=== PATIENT | female | born 1945 | race Caucasian/White ===

== ENCOUNTER → 2024-12-10 10:30 | Outpatient (REF) | payer MEDICARE, SELFPAY | LOC: RAD 10:30 | PROVIDERS: ATTENDING PHYSICIAN Family Medicine | DX: M81.0 Age-related osteoporosis without current pathological fracture (principal) | CPT/HCPCS: 77080 ==

== ENCOUNTER 2025-03-26 17:09 | Inpatient (IN) | payer MEDICARE, SELFPAY ==
[2025-03-26] VITALS (8 sets, daily range): BP systolic 112–190; BP diastolic 64–104; BMI 20.2
--- NOTE | 2025-03-26 11:25 | ED.GENMED ---
History of Present Illness
General
Chief Complaint: Back Pain
Source: patient and ambulance crew
Exam Limitations: none
Time Seen by Provider: 03/26/25 10:58
Nursing documentation reviewed up to this point in time: agreed with
History of Present Illness
History of Present Illness:
The patient is an 80-year-old female with a history of chronic back pain who presents with acute exacerbation characterized by pain in the back that radiates down to the left leg. The pain began yesterday after gardening and is associated with
numbness in the feet and difficulty ambulating. The patient cannot walk on the affected leg due to the severity of the pain. She reports taking acetaminophen and naproxen without significant relief. There is no mention of any prior MRI or specific
diagnostic workup for the back pain. On physical exam, the patients range of motion is limited by pain, specifically in the left leg, which is too painful to lift. The patient denies new bowel or urinary incontinence.
Past History
Past History
ED Past Medical History: HTN
ED Past Surgical History: Appendectomy and Gynecological
Social History
Tobacco: Non-smoker
Personal:
Living: with family
Family History
Family History: Negative Diabetes, Hypertension, Early CAD, Asthma or Cancer
Review of Systems
Review of Systems
Allergies reviewed?: Yes
All Other Systems: ROS reviewed and negative except as documented in HPI and ROS
Phy Exam
Physical Exam
Physical Exam:
GENERAL: Alert , in no apparent distress
EYE: pupils equal and reactive
NECK: Supple, no significant adenopathy.
ENT: o/p clr, mmm.
CARDIAC: Regular rate and rhythm .
LUNGS: Clear breath sounds bilaterally, no acute respiratory distress, no wheezes/rales/rhonchi
ABDOMEN: Soft, without focal tenderness, no r/g, no cvat
NEUROLOGICAL: Alert and oriented, no focal neuro deficits
SKIN: Warm and dry, skin intact.
MUSCULOSKELETAL: Good range of motion of the right leg good range of motion of both toes and ankles. Unwilling to move with straight leg raise the left side secondary to pain at the hip and back. No edema, well perfused.
PSYCH: Normal and appropriate interaction.
Course
Orders/Labs/Results
Orders:
Orders
03/26/25 11:23
Hip, Left 2-3 Views [CR Hip - LT w/wo Pel 2-3 Vw*] Urgent
Comment:
Reason For Exam: left hip pain
Include a pelvis x-ray?: Yes
Lumbar Spine, 2 or 3 View [CR Lumbar Spine 2 Or 3 Views] Urgent
Comment:
Reason For Exam: low back pain mainly left sided
03/26/25 11:24
Dexamethasone [Decadron] 10 mg PO NOW STA
Diazepam [Valium] 2 mg PO NOW STA
Ketorolac [Toradol] 15 mg IM NOW STA
03/26/25 12:09
Urinalysis Reflex To Culture Urgent
Date Specimen was Collected: 03/26/25
Time Specimen was Collected: 11:55
03/26/25 14:30
Acetaminophen [Tylenol] 650 mg PO NOW STA
Diazepam [Valium] 2 mg PO NOW STA
03/26/25 14:44
Pt Eval And Treat Urgent
Activity Level: Ambulate
03/26/25 15:04
Amlodipine [Norvasc] 5 mg PO ONCE ONE
Losartan [Cozaar] 50 mg PO NOW STA
03/26/25 15:38
BMP [Basic Metabolic Panel] Urgent
CBC/With Diff [Complete Blood Count/With Diff] Urgent
Abnormal Lab Results
03/26/25 03/26/25
12:09 15:38
MPV 10.9 H fL
(7.4-10.4)
Absolute Neuts (auto) 7.5 H 10^3/uL
(1.4-6.5)
Absolute Lymphs (auto) 0.8 L 10^3/uL
(1.2-3.4)
Neutrophils % 88.9 H %
(42.2-75.2)
Lymphocytes % 9.6 L %
(20.5-51.1)
Monocytes % 0.9 L %
(1.7-9.3)
Urine Ketones 2+ A
(Negative)
03/26/25 15:38
Vital Signs
Initial and Last Documented VS:
Initial Vital Signs
Temp Pulse Resp BP Pulse Ox
97.7 F 67 18 171/91 100
03/26/25 11:00 03/26/25 11:00 03/26/25 11:00 03/26/25 11:00 03/26/25 11:00
Last Documented Vital Signs
Temp Pulse Resp BP Pulse Ox
97.7 F 60 18 151/104 98
03/26/25 11:00 03/26/25 15:36 03/26/25 11:00 03/26/25 15:36 03/26/25 15:30
MDM/Problems Addressed
MDM/Problems Addressed:
80-year-old female presenting with back pain. No specific trauma that she is aware of. Pain mainly to the left low back rating to the left leg and hip. She claims to feel some paresthesias into her legs but has general sensation when palpating on
my exam. Normal skin tone normal distal pulses. Good neurologic function of the ankle feet toes. Unwilling to move the hip secondary to pain. Plan for imaging and medication for symptoms. No signs of cauda equina or spinal epidural abscess.
Patient was given Toradol dexamethasone with significant improvement of symptoms at time of reassessment. Initially patient was written up for discharge at this point she claims the pain is back and very severe unable to stand up. Seen by PT
unable to ambulate well plan to admit for further treatment and monitoring.
*Pulse Oximetry
SaO2: 100
Oxygen Mode of Delivery: Room air
*Critical Care Note
Total Time (30-74mins, 75-104mins- exclusive of procedures): Not Applicable
ED Attending Note
-
Portions of this chart may have been created with voice recognition software.� Occasional wrong word or��sound alike� substitutions may have occurred due to the inherent limitations of voice recognition software.
Discharge Plan
Departure
Patient Disposition: Admit
Date of Disposition: 03/26/25
Time of Disposition: 16:05
Admit to: Med/Surg
Admit to doctor: Htay
Presentation/result/management discussed w/ accepting MD/DO: Hospitalist
Patient with high blood pressure during this ER visit?: Yes
Condition: Good
Covid-19: Not Applicable
Discharge Problem:
Low back pain, Acute hip pain
Prescriptions:
No Action
ascorbic acid (vitamin C) 1,000 MG tablet
1,000 mg PO DAILY
calcium carbonate [Calcium 600] 600 MG tablet
600 mg PO DAILY
vitamin E 400 UNIT capsule
400 unit PO DAILY
multivitamin with folic acid [Tab-A-Javi] 1 TABLET tablet
1 tab PO DAILY
acetaminophen [Tylenol] 325 mg Tablet
650 mg PO Q6HPRN PRN (Reason: mild pain)
amlodipine [Norvasc] 5 mg Tablet
5 mg PO QPM
flaxseed oil 1,000 mg Capsule
1,000 mg PO DAILY
vitamin B complex Tablet
1 tab PO DAILY
cholecalciferol (vitamin D3) [Vitamin D3] 25 mcg (1,000 unit) Capsule
25 mcg PO DAILY
losartan 50 mg Tablet
50 mg PO QPM
aspirin 325 mg Tablet
325 mg PO DAILY Qty: 30 0RF
sucralfate 1 gram Tablet
1 g PO ACHS Qty: 90 0RF
docusate sodium 100 mg Capsule
100 mg PO BID Qty: 20 0RF
oxycodone 5 mg Tablet
5 mg PO Q4HPRN PRN (Reason: severe pain) Qty: 10 0RF
Chloraseptic Sore Throat 6-10 mg Lozenge
1 aidan PO Q4HPRN PRN (Reason: sore throat/dysphagia) Qty: 10 0RF
pantoprazole [Protonix] 40 mg tablet,delayed release (DR/EC)
40 mg PO DAILY Qty: 30 0RF
gabapentin 300 mg capsule
300 mg PO HS Qty: 7 0RF
Referrals:
David Dye Jr., DO [Family Provider, Internal Medicine]
Activity Restrictions/Additional Instructions:
You came to the emergency department today with concerns of back and hip discomfort. Please follow-up closely with your primary care doctor within the next week. Return for any worsening, new or concerning symptoms.
Interventions
Interventions:
*Risk Screen - Suicide Last Done: 03/26/25 11:00
*General Assessment Last Done: 03/26/25 11:00
*Neglect/Abuse Screening Last Done: 03/26/25 11:00
*ED- Fall Risk Assessment Last Done: 03/26/25 11:00
*ED COVID-19 Vaccine History Last Done: 03/26/25 11:00
ED-Musculoskeletal Assessment Last Done: 03/26/25 11:07
Discharge Date and Time
Print Language: BURKINAN
[2025-03-26] MEDS: TORADOL 15 MG IM (12:00)
[2025-03-26] MEDS: DECADRON 10 MG PO (12:00)
[2025-03-26] MEDS: VALIUM 2 MG PO ×2 (12:00→14:46)
[2025-03-26 12:35] LABS: Urine Albumin Negative (Neg - Trace); Urine Bilirubin Negative (Negative); Urine Character Clear (Clear); Urine Color Yellow; Urine Glucose Negative (Negative); Urine Ketone 2+ (Negative); Urine Leukocyte Negative (Negative); Urine Nitrite Negative (Negative); Urine Occult Blood Negative (Negative); Urine Specific Gravity 1.015 (<1.030); Urine Urobilinogen Negative (Neg - 1+)
[2025-03-26] MEDS: TYLENOL 650 MG PO (14:45)
[2025-03-26] MEDS: NORVASC 5 MG PO (15:35)
[2025-03-26] MEDS: COZAAR 50 MG PO (15:36)
[2025-03-26 15:52] LABS: % Basophils 0.1 % (0-2); % Immature Granulocytes 0.5 % (0-0.5); % Lymphocytes 9.6 % (20.5-51.1); % Monocytes 0.9 % (1.7-9.3); % Neutrophils 88.9 % (42.2-75.2); Absolute Lymphocytes 0.8 10^3/uL (1.2-3.4); Absolute Monocytes 0.1 10^3/uL (0.1-0.6); Absolute Neutrophils 7.5 10^3/uL (1.4-6.5); Hematocrit 40.4 % (37.0-47.0); Hemoglobin 14.1 g/dL (12.0-16.0); Mean Corp Hgb Conc. 34.9 g/dL (33.0-37.0); Mean Corpuscular Hgb 30.7 pg (27.0-31.0); Mean Platelet Volume 10.9 fL (7.4-10.4); Nucleated Red Blood Cells % 0 %; Platelet Count 251 10^3/uL (130-400); Red Blood Cell Count 4.59 10^6/uL (4.20-5.40); Red Cell Dist. Width 13.1 % (11.5-14.5); White Blood Cell Count 8.4 10^3/uL (4.8-10.8)
[2025-03-26 16:09] LABS: Blood Urea Nitrogen 16 mg/dl (7-17); Calcium 9.5 mg/dl (8.4-10.2); Carbon Dioxide 22 mmol/L (22-30); Chloride 106 mmol/L (98-107); Estimated Creatinine Clearance 61 ml/min; Glucose 139 mg/dl (70-99); Potassium 4.2 mmol/L (3.5-5.1); Sodium 137 mmol/L (135-145); eGFR > 60.00
--- NOTE | 2025-03-26 16:42 | HPS.HSE ---
Family Physician
-
Family Physician: David Dye Jr.
Chief Complaint
-
Lumbar and left hip pain
History of Present Illness
Ms. 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
presents now with worsening lumbar and left hip pain limiting her ability to ambulate. She reports pain in the left side of her lumbar region and left groin which travels down the front and back of her thigh to her heel. She reports that the pain
is extreme and associated with numbness and weakness. Today she also began experiencing urinary incontinence. Her symptoms began after gardening yesterday. She says she has been evaluated by an orthopedist for arthritis previously but not in many
years and was not ready for joint replacement at that time. She has been taking Tylenol and NSAIDs at home with very little relief.
In the ED she was hypertensive but otherwise hemodynamically stable. She had not taken her daily blood pressure medications prior to arrival today. Her labs were unremarkable. X-ray imaging showed mild to moderate degenerative changes of her left
hip and lumbar spine without evidence of acute fracture. She has been admitted for pain management and further evaluation.
Medical History
Past Medical History
Past Medical History: Reports HTN and Other
Additional Past Medical History:
Osteoporosis, degenerative disc disease
Past Surgical History: Reports Appendectomy, Bowel Resection (Partial omental resection due to infarction), Gynocological (Tubal ligation) and Orthopedic (Right hip ORIF)
Social History
Tobacco: Non-smoker
Alcohol: None
Family History
Family History: Not pertinent
Allergies / Home Medications
Allergies reflects when Allergies were last updated in [facility].
Home Medications with original date entered in [facility]
Allergy/Medication List:
Allergies
Allergy/AdvReac Type Severity Reaction Status Date / Time
No Known Allergies Allergy Verified 06/30/23 15:28
Home Medications
ascorbic acid (vitamin C) 1,000 mg tablet 1,000 mg PO DAILY Supplement 09/21/11
vitamin E 268 mg (400 unit) capsule 400 unit PO DAILY Supplement 09/21/11
amlodipine 5 mg tablet (Norvasc) 5 mg PO HS Blood Pressure 06/30/23
cholecalciferol (vitamin D3) 25 mcg (1,000 unit) capsule (Vitamin D3) 25 mcg PO DAILY Supplement 06/30/23
flaxseed oil 1,000 mg capsule 1,000 mg PO DAILY Supplement 06/30/23
losartan 50 mg tablet 50 mg PO HS Blood Pressure 06/30/23
vitamin B complex 1 tab PO DAILY Supplement 06/30/23
acetaminophen 500 mg tablet (Tylenol Extra Strength) 1,000 mg PO Q6H PRN mild pain 03/26/25
acetaminophen 650 mg tablet,extended release (Tylenol 8 Hour) 1,300 mg PO [id number] PRN mild pain 03/26/25
calcium 250 mg tablet 500 mg PO BID 03/26/25
gabapentin 300 mg capsule 300 mg PO DAILYPRN PRN mild pain 03/26/25
ibuprofen 200 mg tablet 200 mg PO DAILYPRN PRN mild pain 03/26/25
therapeutic multivitamin 1 tab PO DAILY 03/26/25
Review of Systems
-
History Source: Patient
A 12 point ROS was completed and negative except as noted: Yes
Musculoskeletal: Reports Joint Pain (Severe left lower back pain and left hip/groin pain)
Neurological: Reports Other (Left lower extremity weakness and numbness, urinary incontinence)
Physical Exam
Vital Signs
Vital Signs
Temp Pulse Resp BP Pulse Ox
97.7 F 60 18 178/79 98
03/26/25 11:00 03/26/25 15:36 03/26/25 11:00 03/26/25 16:01 03/26/25 16:15
Physical Exam
General: Pain
Laboratory Results
-
03/26/25 15:38
03/26/25 15:38
Impression/Plan
-
General: No acute distress, in significant pain with minimal movement
HEENT: NormoCephalic, Moist mucous membranes, Atraumatic
Respiratory: Clear and Non Labored Respirations
Cardiac: S1/S2 and Regular Rhythm; No Rub or Gallop
GI: Soft, Non Tender, Non Distended and Normal Bowel Sounds
Musculoskeletal: No Edema, no deformity, significant TTP left paraspinal in the region of L5-S1, left hip ROM limited by pain
Skin: Warm and dry
: NO Hdez
Neuro: Awake, Alert, Nonfocal/grossly intact
Psych: Calm and Intact Judgment/Insight
Ms. 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
presents now with worsening lumbar and left hip pain limiting her ability to ambulate. She reports pain in the left side of her lumbar region and left groin which travels down the front and back of her thigh to her heel. She reports that the pain
is extreme and associated with numbness and weakness. Today she also began experiencing urinary incontinence. Her symptoms began after gardening yesterday. She says she has been evaluated by an orthopedist for arthritis previously but not in many
years and was not ready for joint replacement at that time. She has been taking Tylenol and NSAIDs at home with very little relief.
In the ED she was hypertensive but otherwise hemodynamically stable. She had not taken her daily blood pressure medications prior to arrival today. Her labs were unremarkable. X-ray imaging showed mild to moderate degenerative changes of her left
hip and lumbar spine without evidence of acute fracture. She has been admitted for pain management and further evaluation.
Left hip and back pain:
- Acute on chronic, worse after working in her garden 1 day prior to arrival
- No acute fracture on x-ray, does have mild to moderate degenerative disease of left hip and lumbar spine
- Will follow-up MRI of lumbar spine and left hip, will involve neurosurgery if indicated by imaging results
- Ortho consult
- Multimodal pain control
- PT/OT
Hypertension:
- Continue home amlodipine 5 mg and losartan 50 mg
DVT prophylaxis: Lovenox
CODE STATUS: DNR/DNI
Total time spent on today's encounter was 55 minutes.
--- NOTE | 2025-03-26 17:05 | PHANOTE ---
03/26/2025, per pt., she takes Evenity for her bones; was not able to confirm dose with the [facility] at time of interview.
[2025-03-26] MEDS: LIDOCAINE 4% PATCH 1 PATCH TOPICAL (18:29)
[2025-03-26] MEDS: LOVENOX 40 MG SC (18:29)
[2025-03-26] MEDS: DILAUDID 0.5 MG IV ×2 (18:30→22:46)
[2025-03-26] MEDS: TYLENOL 1000 MG PO (21:11)
[2025-03-26] MEDS: NEURONTIN 200 MG PO (21:13)
[2025-03-27] MEDS: ROXICODONE 5 MG PO ×4 (00:37→22:07)
[2025-03-27 07:35] LABS: % Basophils 0.1 % (0-2); % Eosinophils 0.1 % (0-6); % Immature Granulocytes 0.3 % (0-0.5); % Lymphocytes 18.6 % (20.5-51.1); % Monocytes 4.7 % (1.7-9.3); % Neutrophils 76.2 % (42.2-75.2); Absolute Lymphocytes 1.7 10^3/uL (1.2-3.4); Absolute Monocytes 0.4 10^3/uL (0.1-0.6); Hematocrit 37.2 % (37.0-47.0); Hemoglobin 13.3 g/dL (12.0-16.0); Mean Corp Hgb Conc. 35.8 g/dL (33.0-37.0); Mean Corpuscular Hgb 31.2 pg (27.0-31.0); Mean Corpuscular Volume 87.3 fL (81.0-99.0); Mean Platelet Volume 11.1 fL (7.4-10.4); Nucleated Red Blood Cells % 0 %; Platelet Count 288 10^3/uL (130-400); Red Blood Cell Count 4.26 10^6/uL (4.20-5.40); Red Cell Dist. Width 12.9 % (11.5-14.5); White Blood Cell Count 9.2 10^3/uL (4.8-10.8)
[2025-03-27 07:42] LABS: INR 0.99; PT 13.4 Sec (11.4-14.6)
[2025-03-27 07:49] LABS: APTT 32.8 Sec (23.4-35.0)
[2025-03-27 07:50] VITALS: BP 136/75
[2025-03-27 08:19] LABS: Blood Urea Nitrogen 28 mg/dl (7-17); Calcium 8.6 mg/dl (8.4-10.2); Carbon Dioxide 17 mmol/L (22-30); Chloride 105 mmol/L (98-107); Estimated Creatinine Clearance 57 ml/min; Glucose 133 mg/dl (70-99); Potassium 4.3 mmol/L (3.5-5.1); Sodium 134 mmol/L (135-145); eGFR > 60.00
--- NOTE | 2025-03-27 08:21 | W.PN.UPDATE ---
Update Note
Progress Note Update
Full consult to follow
80-year-old female with atraumatic onset of low back and left-sided pain disabling and unable to bear weight. Denies any traumatic history. History of right hip cephalomedullary nail fixation which has been uncomplicated. She does report a
history of intermittent back pain episodes but not to the severity. Endorsing pain to the posterior lateral hip, low back, somewhat into the groin into the dorsum of her foot worse with weightbearing. Denies paresthesias
On examination she is no pain of the hip deep inguinal with FADIR or CHANDNI testing. She has deep flexion of the hip towards 120 degrees without pain and no pain with logroll. No significant neuro weakness on exam L3-S1, exam limited secondary to
pain however no significant weakness identified L5-S1.
X-rays taken of the left hip show minimal arthrosis of the left femoral acetabular joint without acute osseous abnormalities.
80-year-old female with atraumatic onset of lumbar pain and suspected radiculopathy to the left lower extremity pending MRI of her lumbar spine and left hip. Discussed with patient do not suspect the etiology is relative the hip but will maintain
engagement pending MRI results. If there are no significant findings regarding the hip will encourage follow-up with primary team/spine consult as indicated.
[2025-03-27] MEDS: LIDOCAINE 4% PATCH 1 PATCH TOPICAL (08:51)
[2025-03-27] MEDS: NEURONTIN 200 MG PO ×3 (08:51→22:08)
[2025-03-27] MEDS: TYLENOL 1000 MG PO ×3 (08:51→22:08)
--- NOTE | 2025-03-27 10:15 | CM ---
Patient seen bedside, initial assessment completed. 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
after fall) status post ORIF 07/01/2023) who presents now with worsening lumbar and left hip pain limiting her ability to ambulate.
Patient resides w/ her spouse in a 1st floor independent living apartment at [facility], no steps to enter. Patient reports she was prev independent w/o device but is now requiring a RW. Independent w/ ADLs, tub grab bar in the bathroom.
Patient received skilled rehab at [facility] last year following hip fx. OP and home PT last year as well following hip fx.
Address, point of contact and insurance verified
PCP: David Dye
Pharmacy: [facility]
Therapy assessed yesterday, recommending skilled rehab. Discussed w/ patient who stated she would like to discuss at a later time as she has had back pain for a while and would like to know pending further imaging if she suffered a new injury. CM
will revisit SNF as patient progresses and PT continues to see.
Plan: SNF recommended at this time
[2025-03-27] MEDS: DILAUDID 0.5 MG IV (10:49)
--- NOTE | 2025-03-27 14:21 | W.PN.HOSP.TC ---
Today's Communication/Plan
-
Assessment / Plan
Assessment / Plan
General: No acute distress, in significant pain with minimal movement
HEENT: NormoCephalic, Moist mucous membranes, Atraumatic
Respiratory: Clear and Non Labored Respirations
Cardiac: S1/S2 and Regular Rhythm; No Rub or Gallop
GI: Soft, Non Tender, Non Distended and Normal Bowel Sounds
Musculoskeletal: No Edema, no deformity, significant TTP left paraspinal in the region of L5-S1, left hip ROM limited by pain
Skin: Warm and dry
: NO Hdez
Neuro: Awake, Alert, Nonfocal/grossly intact
Psych: Calm and Intact Judgment/Insight
Ms. 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
presents now with worsening lumbar and left hip pain limiting her ability to ambulate. She reports pain in the left side of her lumbar region and left groin which travels down the front and back of her thigh to her heel. She reports that the pain
is extreme and associated with numbness and weakness. Today she also began experiencing urinary incontinence. Her symptoms began after gardening yesterday. She says she has been evaluated by an orthopedist for arthritis previously but not in many
years and was not ready for joint replacement at that time. She has been taking Tylenol and NSAIDs at home with very little relief.
In the ED she was hypertensive but otherwise hemodynamically stable. She had not taken her daily blood pressure medications prior to arrival today. Her labs were unremarkable. X-ray imaging showed mild to moderate degenerative changes of her left
hip and lumbar spine without evidence of acute fracture. She has been admitted for pain management and further evaluation.
Left hip and back pain:
- Acute on chronic, worse after working in her garden 1 day prior to arrival
- No acute fracture on x-ray, does have mild to moderate degenerative disease of left hip and lumbar spine
- MRI of lumbar spine and left hip showed no evidence of fracture or avascular necrosis, mild to moderate degenerative changes of the left hip with a likely tear of the anterior superior labrum, lumbar spinal stenosis appears severe but unchanged
from previous
- Ortho following, will follow-up regarding MRI results
- Multimodal pain control
- PT/OT
Hypertension:
- Continue home amlodipine 5 mg and losartan 50 mg
DVT prophylaxis: Lovenox
CODE STATUS: DNR/DNI
Total time spent on today's encounter was 39 minutes.
Anticipated Discharge: 24 - 48 hours
Subjective/Interval History
-
Date of Service: March 27, 2025
Patient was seen and examined at bedside this morning. Ongoing left hip and back pain. MRI results pending
Objective Data
-
Labs:
Laboratory Results
03/27/25
07:15
WBC 9.2
Hgb 13.3
Hct 37.2
Plt Count 288
PT 13.4
INR 0.99
APTT 32.8
Sodium 134 L
Potassium 4.3
Chloride 105
Carbon Dioxide 17 L
BUN 28 H
Creatinine 0.6
Glucose 133 H
Calcium 8.6
Vital Signs:
Vital Signs
Temp Pulse Resp BP Pulse Ox
97.9 F 67 16 136/75 97
03/27/25 07:50 03/27/25 07:50 03/27/25 07:50 03/27/25 07:50 03/27/25 07:50
I&O
03/26/25 03/27/25 03/28/25
06:59 06:59 06:59
Intake Total 360 / 360
Output Total 100 / 100
Balance 260 / 260
Review of Systems
-
History Source: Patient
All other systems: Reviewed and negative
Musculoskeletal: Reports Joint Pain (Left hip and back pain)
Physical Exam
-
General: No Apparent Distress
[2025-03-27 16:27] VITALS: BP 153/73
--- NOTE | 2025-03-27 16:44 | PTCARENOTE ---
Pt fell today, roommate witnessed fall. made aware, report filed.
[2025-03-27] MEDS: LOVENOX 40 MG SC (17:02)
--- NOTE | 2025-03-27 21:30 | CON.ORTHO ---
Consultation
-
Date/Time Consultation Requested: 03/26/2025 16: 35
Date/Time Consultation Performed: 03/27/2025 0745
Requesting Provider: Dr. Ricky Greenfield
Performing Provider: ANNIE Carrera, Dr. Karan Martines
Reason for Consultation: Left hip pain
Consultation - Orthopedics
History
80-year-old female with atraumatic onset of low back and left-sided pain disabling and unable to bear weight. Denies any traumatic history. History of right hip cephalomedullary nail fixation which has been uncomplicated. She does report a
history of intermittent back pain episodes but not to the severity. Endorsing pain to the posterior lateral hip, low back, somewhat into the groin into the dorsum of her foot worse with weightbearing. Denies paresthesias
Allergies / Home Medications
Past Medical History: Reports HTN and Other
Additional Past Medical History:
Osteoporosis, degenerative disc disease
Past Surgical History: Reports Appendectomy, Bowel Resection (Partial omental resection due to infarction), Gynocological (Tubal ligation) and Orthopedic (Right hip ORIF)
Social History
Tobacco: Non-smoker
Alcohol: None
Family History
Family History: Not pertinent
Allergies / Home Medications
Allergies reflects when Allergies were last updated in [facility].
Allergy/AdvReac Type Severity Reaction Status Date / Time
No Known Allergies Allergy Verified 06/30/23 15:28
�Medication �Instructions �Recorded
ascorbic acid (vitamin C) 1,000 mg 1,000 mg PO DAILY Supplement 09/21/11
tablet
vitamin E 268 mg (400 unit) capsule 400 unit PO DAILY Supplement 09/21/11
amlodipine 5 mg tablet (Norvasc) 5 mg PO HS Blood Pressure 06/30/23
cholecalciferol (vitamin D3) 25 25 mcg PO DAILY Supplement 06/30/23
mcg (1,000 unit) capsule (Vitamin
D3)
flaxseed oil 1,000 mg capsule 1,000 mg PO DAILY Supplement 06/30/23
losartan 50 mg tablet 50 mg PO HS Blood Pressure 06/30/23
vitamin B complex 1 tab PO DAILY Supplement 06/30/23
Evenity 1 dose SC QMONTH 03/26/25
acetaminophen 500 mg tablet 1,000 mg PO Q6H PRN mild pain 03/26/25
(Tylenol Extra Strength)
acetaminophen 650 mg 1,300 mg PO [id number] PRN mild pain 03/26/25
tablet,extended release (Tylenol 8
Hour)
calcium 250 mg tablet 500 mg PO BID Supplement 03/26/25
gabapentin 300 mg capsule 300 mg PO DAILYPRN PRN mild pain 03/26/25
ibuprofen 200 mg tablet 200 mg PO DAILYPRN PRN mild pain 03/26/25
therapeutic multivitamin 1 tab PO DAILY Supplement 03/26/25
Vital Signs / Lab Results
Temp Pulse Resp BP Pulse Ox
97.7 F 69 18 153/73 100
03/27/25 16:27 03/27/25 16:27 03/27/25 16:27 03/27/25 16:27 03/27/25 16:27
PHYSICAL EXAM:
On examination she is no pain of the hip deep inguinal with FADIR or CHANDNI testing. She has deep flexion of the hip towards 120 degrees without pain and no pain with logroll. No significant neuro weakness on exam L3-S1, exam limited secondary to
pain however no significant weakness identified L5-S1.
IMAGING: X-rays taken of the left hip show minimal arthrosis of the left femoral acetabular joint without acute osseous abnormalities.
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
03/27/25 07:15
03/27/25 07:15
Assessment / Plan
80-year-old female with atraumatic onset of lumbar pain and suspected radiculopathy to the left lower extremity; her hip physical exam was benign and MRI does not show significantly correlating findings. Her exam and history is more consistent with
acute exacerbation of chronic lumbar pathology.
-recommend spine consultation as needed for assistance in management
-no orthopedic surgery services indicated at this time- will follow peripherally- please rengage as needed
[2025-03-27 23:46] VITALS: BP 133/69
[2025-03-28] MEDS: DILAUDID 0.5 MG IV ×2 (05:42→19:32)
[2025-03-28] MEDS: NEURONTIN 200 MG PO (07:48)
[2025-03-28] MEDS: TYLENOL 1000 MG PO ×3 (07:49→21:32)
[2025-03-28] MEDS: ROXICODONE 5 MG PO ×2 (07:49→13:01)
[2025-03-28] MEDS: LIDOCAINE 4% PATCH 1 PATCH TOPICAL (07:51)
[2025-03-28 07:59] VITALS: BP 153/77
[2025-03-28] MEDS: FLEXERIL 5 MG PO ×3 (10:15→21:32)
--- NOTE | 2025-03-28 12:31 | CON.NEURO ---
Consultation
Order
Date of Consultation: 03/28/25
Requesting Provider: Ricky Greenfield DO
Reason for Consult: Left lower extremity radiculopathy, need help with pain control.
Neurology Consultation Note.
HPI: This is an 80-year-old woman who presented to [facility] on 03/26/2025 with an acute left leg pain.
Ms. Christopher reports developing an acute severe positional left leg pain from the hip down upon awakening. This pain is severe enough that she was 'doubled over' and unable to walk or 'think clearly'.
The patient has a history of LS DJD and right-sided radiculopathy poorly responsive to RIVAS in the past.
In addition to the leg pain, the patient reports new-onset incontinence starting the day before presentation, which is ongoing and exacerbated by changing position. She also describes experiencing tingling and numbness in her feet, which began on
. The patient mentions having neuropathy, with numbness typically accompanying right leg pain. She experiences leg discomfort at night, including cramps that require her to walk around for relief.
ER VS: 171/91-190/90, 67, afebrile
PDMP: No recently prescribed medications
Labs: Normal WBCs, glucose�139, UA�unremarkable
LS spine MRI wo yandel(03/27/2025) L4-L5: Spondylolisthesis with disc uncovering/bulge with resultant mild lateral recess narrowing and mild/moderate bilateral neuroforaminal narrowing. There is no significant central canal stenosis. 7 mm posteriorly
directed synovial facet cyst on the right.
L5-S1: Small disc bulge with a right subarticular disc extrusion and bilateral facet arthropathy with resultant mild right lateral recess narrowing, moderate/severe right-sided neuroforaminal narrowing and mild left-sided neuroforaminal narrowing.
L hip MRI-mild/moderate degenerative changes of the hip with a likely tear of the anterior/superior labrum.
No reports of fever, recent trauma, falls or heavy lifting, saddle anesthesia. She mentions she was planting herbs in a small pot prior to the pain onset. The patient takes gabapentin as needed, up to 600 milligrams, typically about three times a
week, often combining it with Tylenol for pain relief. She tries to limit her medication intake, preferring to stay active despite the pain and avoid pharmacotherapy.
PMH: LS DJD, right LS radiculopathy, history of omental infarct, osteoporosis
PSH: Appendectomy, partial omental resection, R femoral ORIF
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
FH: Noncontributory
All:NKDA
ROS: Constitutional: Negative. Negative for chills, fever and unexpected weight change.
HENT: Negative for ear pain, hearing loss, tinnitus and trouble swallowing.
Eyes: Negative. Negative for photophobia, pain and visual disturbance.
Respiratory: Negative for cough, choking and shortness of breath.
Cardiovascular: Negative for chest pain, palpitations and leg swelling.
Gastrointestinal: Negative for abdominal pain and vomiting.
Endocrine: Negative. Negative for cold intolerance.
Genitourinary: Positive for incontinence. Negative for dysuria, urgency, frequency.
Musculoskeletal: Positive for leg cramps at night, right femoral pain, back pain, left leg pain
Skin: Negative for rash.
Allergic/Immunologic: Negative. Negative for immunocompromised state.
Neurological: Positive for tingling and numbness in feet, pins and needles sensation in legs. Negative for balance issues.
Psychiatric/Behavioral: Negative for behavioral problems, confusion and hallucinations.
General: Well developed. In no acute distress.
Cardio: Regular rate and rhythm without murmur. Extremities are without cyanosis or edema.
Neuro:
Mental Status: Alert, oriented to person, place, and date. Normal attention and recall. Good fund of knowledge. Follows complex requests across the midline. Comprehension, naming, and repetition intact. Immediate and delayed recall 3/3.
Cranial Nerves: Pupils are equally round and reactive to light. EOMs full. Visual lima full to confrontation. No ptosis. No nystagmus. V1-V3 intact to light touch and pinprick bilaterally, symmetric. Face symmetric. Normal hearing AU. The
palate elevated well. SCMs and traps 5/5. Tongue midline. No dysarthria.
Motor: Normal bulk and tone. No pronator or arm drift. Strength 5/5 throughout except for pain limited bilateral hip flexion and knee extension. Full strength in dorsiflexion and plantarflexion. No clonus.
Reflexes: 2+ throughout the upper extremities. R patellar 2+, L patellar-0/2, AJs-0/2. Plantar responses flexor bilaterally.
Sensory: Normal proprioception bilaterally
Coordination: No dysmetria or tremor.
Gait: deferred
Assessment and Plan:
I. Cauda equina syndrome. Likely etiology� inflammatory vs infections vs neoplastic, less likely spondylitic(however positional component with be more consistent with compressive)
II. Chronic right L5-S1 radiculopathy
III. Urinary incontinence
-Fall precautions
-Please obtain PVR
-LS spine MRI with yandel
-Please check ESR, CRP, ALEC, RF, ALEC, Lyme, iron panel
-PT
-CSF(cell count, protein, glucose, cx, cytology)
-OP NCS/EMG os LEs in 3 weeks.
-Titrate gabapentin by 300 as tolerated.
-Urology consult
-DVT prophylaxis
I personally reviewed all radiology and labs along with past medical records pertinent to current medical problems. Total time spent in patient care is 60 minutes.
Thank you for allowing us to participate in the care of this patient. We will continue to follow. Please do not hesitate to contact us with any questions or concerns.
Subjective/Objective
Subjective Data
Date of Service: March 28, 2025
Objective Data
Vital Signs
Temp Pulse Resp BP Pulse Ox
36.6 C 59 14 153/77 99
03/28/25 07:59 03/28/25 07:59 03/28/25 07:59 03/28/25 07:59 03/28/25 08:20
Lab Results
03/27/25 07:15
03/27/25 07:15
PT 13.4 Sec (11.4-14.6) 03/27/25 07:15
INR 0.99 03/27/25 07:15
APTT 32.8 Sec (23.4-35.0) 03/27/25 07:15
Sodium 134 mmol/L (135-145) L 03/27/25 07:15
Potassium 4.3 mmol/L (3.5-5.1) 03/27/25 07:15
BUN 28 mg/dl (7-17) H 03/27/25 07:15
Glucose 133 mg/dl (70-99) H 03/27/25 07:15
Calcium 8.6 mg/dl (8.4-10.2) 03/27/25 07:15
Patient Allergies
No Known Allergies Allergy (Verified 06/30/23 15:28)
Medications
-
Active Medications
Generic Name Dose Route Start Last Admin
Trade Name Freq PRN Reason Stop Dose Admin
Acetaminophen 1,000 mg 03/26/25 22:00 03/28/25 07:49
Acetaminophen 500 Mg Tablet PO 04/23/25 21:59 1,000 mg
TID KYM Administration
Cyclobenzaprine HCl 5 mg 03/28/25 10:15 03/28/25 10:15
Cyclobenzaprine 10 Mg Tablet PO 04/25/25 10:14 5 mg
TID KYM Administration
Enoxaparin Sodium 40 mg 03/26/25 18:00 03/27/25 17:02
Enoxaparin Sodium 40 Mg/0.4 Ml Syringe SC 04/23/25 17:59 40 mg
QPM KYM Administration
Gabapentin 300 mg 03/28/25 16:00
Gabapentin 300 Mg Capsule PO 04/25/25 15:59
TID KYM
Hydromorphone HCl 0.5 mg 03/26/25 16:11 03/28/25 05:42
Hydromorphone 0.5 Mg/0.5 Ml Syringe IV 04/09/25 16:10 0.5 mg
Q4HPRN PRN Administration
breakthrough pain
Lidocaine 1 patch 03/26/25 16:45 03/28/25 07:51
Lidocaine 4% Topical Patch TOPICAL 04/23/25 16:44 1 patch
DAILY KYM Administration
Protocol
Oxycodone HCl 5 mg 03/26/25 16:11 03/28/25 07:49
Oxycodone 5 Mg Regular Release Tablet PO 04/09/25 16:10 5 mg
Q4HPRN PRN Administration
moderate to sev pain
Patch Removal 0 patch 03/27/25 20:00 03/27/25 22:08
Remove Lidocaine Patch REMOVE 04/24/25 19:59 1 patch
DAILY@2000 KYM Administration
Polyethylene Glycol 17 grams 03/26/25 16:11
Polyethylene Glycol Powder 17 Grams Packet PO 04/23/25 16:10
DAILYPRN PRN
constipation
Senna/Docusate Sodium 1 tablet 03/26/25 16:11
Docusate W/Senna (Phuong-Colace) Tablet PO 04/23/25 16:10
BIDPRN PRN
constipation
Sodium Chloride 0 flush 03/26/25 18:00
Sodium Chloride 0.9% (Flush) Syringe IV 04/23/25 17:59
PER PROTOCOL KYM
Home Medications
�Medication �Instructions �Recorded
ascorbic acid (vitamin C) 1,000 mg 1,000 mg PO DAILY Supplement 09/21/11
tablet
vitamin E 268 mg (400 unit) capsule 400 unit PO DAILY Supplement 09/21/11
amlodipine 5 mg tablet (Norvasc) 5 mg PO HS Blood Pressure 06/30/23
cholecalciferol (vitamin D3) 25 25 mcg PO DAILY Supplement 06/30/23
mcg (1,000 unit) capsule (Vitamin
D3)
flaxseed oil 1,000 mg capsule 1,000 mg PO DAILY Supplement 06/30/23
losartan 50 mg tablet 50 mg PO HS Blood Pressure 06/30/23
vitamin B complex 1 tab PO DAILY Supplement 06/30/23
Evenity 1 dose SC QMONTH 03/26/25
acetaminophen 500 mg tablet 1,000 mg PO Q6H PRN mild pain 03/26/25
(Tylenol Extra Strength)
acetaminophen 650 mg 1,300 mg PO [id number] PRN mild pain 03/26/25
tablet,extended release (Tylenol 8
Hour)
calcium 250 mg tablet 500 mg PO BID Supplement 03/26/25
gabapentin 300 mg capsule 300 mg PO DAILYPRN PRN mild pain 03/26/25
ibuprofen 200 mg tablet 200 mg PO DAILYPRN PRN mild pain 03/26/25
therapeutic multivitamin 1 tab PO DAILY Supplement 03/26/25
Vital Signs and Labs
-
Vital Signs and Labs:
Vital Signs
Temp Pulse Resp BP Pulse Ox
36.6 C 59 14 153/77 99
03/28/25 07:59 03/28/25 07:59 03/28/25 07:59 03/28/25 07:59 03/28/25 08:20
Lab Results
03/27/25 07:15
03/27/25 07:15
PT 13.4 Sec (11.4-14.6) 03/27/25 07:15
INR 0.99 03/27/25 07:15
APTT 32.8 Sec (23.4-35.0) 03/27/25 07:15
Sodium 134 mmol/L (135-145) L 03/27/25 07:15
Potassium 4.3 mmol/L (3.5-5.1) 03/27/25 07:15
BUN 28 mg/dl (7-17) H 03/27/25 07:15
Glucose 133 mg/dl (70-99) H 03/27/25 07:15
Calcium 8.6 mg/dl (8.4-10.2) 03/27/25 07:15
Medications
-
Medications:
Generic Name Dose Route Start Last Admin
Trade Name Freq PRN Reason Stop Dose Admin
Acetaminophen 1,000 mg 03/26/25 22:00 03/28/25 07:49
Acetaminophen 500 Mg Tablet PO 04/23/25 21:59 1,000 mg
TID KYM Administration
Cyclobenzaprine HCl 5 mg 03/28/25 10:15 03/28/25 10:15
Cyclobenzaprine 10 Mg Tablet PO 04/25/25 10:14 5 mg
TID KYM Administration
Enoxaparin Sodium 40 mg 03/26/25 18:00 03/27/25 17:02
Enoxaparin Sodium 40 Mg/0.4 Ml Syringe SC 04/23/25 17:59 40 mg
QPM KYM Administration
Gabapentin 300 mg 03/28/25 16:00
Gabapentin 300 Mg Capsule PO 04/25/25 15:59
TID KYM
Hydromorphone HCl 0.5 mg 03/26/25 16:11 03/28/25 05:42
Hydromorphone 0.5 Mg/0.5 Ml Syringe IV 04/09/25 16:10 0.5 mg
Q4HPRN PRN Administration
breakthrough pain
Lidocaine 1 patch 03/26/25 16:45 03/28/25 07:51
Lidocaine 4% Topical Patch TOPICAL 04/23/25 16:44 1 patch
DAILY KYM Administration
Protocol
Oxycodone HCl 5 mg 03/26/25 16:11 03/28/25 07:49
Oxycodone 5 Mg Regular Release Tablet PO 04/09/25 16:10 5 mg
Q4HPRN PRN Administration
moderate to sev pain
Patch Removal 0 patch 03/27/25 20:00 03/27/25 22:08
Remove Lidocaine Patch REMOVE 04/24/25 19:59 1 patch
DAILY@1999 [facility] Administration
Polyethylene Glycol 17 grams 03/26/25 16:11
Polyethylene Glycol Powder 17 Grams Packet PO 04/23/25 16:10
DAILYPRN PRN
constipation
Senna/Docusate Sodium 1 tablet 03/26/25 16:11
Docusate W/Senna (Phuong-Colace) Tablet PO 04/23/25 16:10
BIDPRN PRN
constipation
Sodium Chloride 0 flush 03/26/25 18:00
Sodium Chloride 0.9% (Flush) Syringe IV 04/23/25 17:59
PER PROTOCOL [facility]
Home Medications
-
Home Medications
ascorbic acid (vitamin C) 1,000 mg tablet 1,000 mg PO DAILY Supplement 09/21/11
vitamin E 268 mg (400 unit) capsule 400 unit PO DAILY Supplement 09/21/11
amlodipine 5 mg tablet (Norvasc) 5 mg PO HS Blood Pressure 06/30/23
cholecalciferol (vitamin D3) 25 mcg (1,000 unit) capsule (Vitamin D3) 25 mcg PO DAILY Supplement 06/30/23
flaxseed oil 1,000 mg capsule 1,000 mg PO DAILY Supplement 06/30/23
losartan 50 mg tablet 50 mg PO HS Blood Pressure 06/30/23
vitamin B complex 1 tab PO DAILY Supplement 06/30/23
Evenity 1 dose SC QMONTH 03/26/25
acetaminophen 500 mg tablet (Tylenol Extra Strength) 1,000 mg PO Q6H PRN mild pain 03/26/25
acetaminophen 650 mg tablet,extended release (Tylenol 8 Hour) 1,300 mg PO [id number] PRN mild pain 03/26/25
calcium 250 mg tablet 500 mg PO BID Supplement 03/26/25
gabapentin 300 mg capsule 300 mg PO DAILYPRN PRN mild pain 03/26/25
ibuprofen 200 mg tablet 200 mg PO DAILYPRN PRN mild pain 03/26/25
therapeutic multivitamin 1 tab PO DAILY Supplement 03/26/25
[2025-03-28 14:04] VITALS: BP 129/66; PULSE 65; O2SAT 98
--- NOTE | 2025-03-28 14:43 | W.PN.HOSP.TC ---
Today's Communication/Plan
-
Assessment / Plan
Assessment / Plan
General: No acute distress, in significant pain with minimal movement
HEENT: NormoCephalic, Moist mucous membranes, Atraumatic
Respiratory: Clear and Non Labored Respirations
Cardiac: S1/S2 and Regular Rhythm; No Rub or Gallop
GI: Soft, Non Tender, Non Distended and Normal Bowel Sounds
Musculoskeletal: No Edema, no deformity, significant TTP left paraspinal in the region of L5-S1, left hip ROM limited by pain
Skin: Warm and dry
: NO Hdez
Neuro: Awake, Alert, Nonfocal/grossly intact
Psych: Calm and Intact Judgment/Insight
Ms. 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
presents now with worsening lumbar and left hip pain limiting her ability to ambulate. She reports pain in the left side of her lumbar region and left groin which travels down the front and back of her thigh to her heel. She reports that the pain
is extreme and associated with numbness and weakness. Today she also began experiencing urinary incontinence. Her symptoms began after gardening yesterday. She says she has been evaluated by an orthopedist for arthritis previously but not in many
years and was not ready for joint replacement at that time. She has been taking Tylenol and NSAIDs at home with very little relief.
In the ED she was hypertensive but otherwise hemodynamically stable. She had not taken her daily blood pressure medications prior to arrival today. Her labs were unremarkable. X-ray imaging showed mild to moderate degenerative changes of her left
hip and lumbar spine without evidence of acute fracture. She has been admitted for pain management and further evaluation.
Left hip and back pain:
- Acute on chronic, worse after working in her garden 1 day prior to arrival
- No acute fracture on x-ray, does have mild to moderate degenerative disease of left hip and lumbar spine
- MRI of lumbar spine and left hip showed no evidence of fracture or avascular necrosis, mild to moderate degenerative changes of the left hip with a likely tear of the anterior superior labrum, lumbar spinal stenosis appears severe but unchanged
from previous
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
- Multimodal pain control
- Will ask for neurology evaluation
- PT/OT recommending SNF
Hypertension:
- Continue home amlodipine 5 mg and losartan 50 mg
DVT prophylaxis: Lovenox
CODE STATUS: DNR/DNI
Total time spent on today's encounter was 40 minutes.
Anticipated Discharge: 24 - 48 hours
Subjective/Interval History
-
Date of Service: March 28, 2025
Patient was seen and examined at bedside this morning. Continues to be in significant pain from her lower back and left leg. No acute appearing abnormalities on MRI of her lumbar spine and hip. No interventions warranted after orthopedic
follow-up evaluation.
Objective Data
-
Vital Signs:
Vital Signs
Temp Pulse Resp BP Pulse Ox
98 F 59 14 153/77 99
03/28/25 07:59 03/28/25 07:59 03/28/25 07:59 03/28/25 07:59 03/28/25 08:20
I&O
03/27/25 03/28/25 03/29/25
06:59 06:59 06:59
Intake Total 360 / 360 480 / 480 240 / 240
Output Total 100 / 100
Balance 260 / 260 480 / 480 240 / 240
Review of Systems
-
History Source: Patient
All other systems: Reviewed and negative
Musculoskeletal: Reports Joint Pain (Lumbar back pain, neuropathic left leg pain)
Physical Exam
-
General: Pain
[2025-03-28] MEDS: NEURONTIN 300 MG PO ×2 (15:03→21:32)
[2025-03-28 15:15] VITALS: BP 125/69
--- NOTE | 2025-03-28 16:37 | CM ---
Patient from [facility] with Dx Left hip and back pain, Hypertension. Room air. Receiving Roxicodone prn. PT/OT recommend skilled rehab.
Spoke with patient who prefers to go to SNF for rehab rather than return home, as she says her is disabled and cannot assist her. has been getting assistance from their children while patient is here in the hospital, and he may
contact [facility] [employer] again for caregiver assistance while patient is away. The patient is familiar with [facility], saying she had considered moving there, and would like to go to their SNF for rehab. Provided [facility]. Patient made aware
that [facility] is not available over weekend to review referral, CM will follow up on 03/30 for acceptance, and SNF for rehab will also require insurance approval.
SNF referral placed.
Plan follow up with [facility] for acceptance.
[2025-03-28] MEDS: LOVENOX 40 MG SC (17:22)
[2025-03-28 18:57] LABS: Erythrocyte Sed Rate 3 mm/hour (0-20)
[2025-03-28 19:07] LABS: C-Reactive Protein < 5.00 mg/L (0.0-10.00)
[2025-03-28 23:50] VITALS: BP 134/71
[2025-03-29 07:55] VITALS: BP 152/78
[2025-03-29] MEDS: NEURONTIN 300 MG PO (08:21)
[2025-03-29] MEDS: LIDOCAINE 4% PATCH 1 PATCH TOPICAL (08:21)
[2025-03-29] MEDS: FLEXERIL 5 MG PO ×3 (08:21→21:06)
[2025-03-29] MEDS: TYLENOL 1000 MG PO ×3 (08:21→21:06)
[2025-03-29 09:24] LABS: % Basophils 0.4 % (0-2); % Eosinophils 1.5 % (0-6); % Immature Granulocytes 0.1 % (0-0.5); % Monocytes 6.6 % (1.7-9.3); % Neutrophils 42.4 % (42.2-75.2); Absolute Eosinophils 0.1 10^3/uL (0-0.7); Absolute Lymphocytes 3.5 10^3/uL (1.2-3.4); Absolute Monocytes 0.5 10^3/uL (0.1-0.6); Hematocrit 40.7 % (37.0-47.0); Hemoglobin 14.3 g/dL (12.0-16.0); Mean Corp Hgb Conc. 35.1 g/dL (33.0-37.0); Mean Corpuscular Hgb 30.7 pg (27.0-31.0); Mean Corpuscular Volume 87.3 fL (81.0-99.0); Mean Platelet Volume 11.1 fL (7.4-10.4); Nucleated Red Blood Cells % 0 %; Platelet Count 263 10^3/uL (130-400); Red Blood Cell Count 4.66 10^6/uL (4.20-5.40); Red Cell Dist. Width 13.2 % (11.5-14.5); White Blood Cell Count 7.1 10^3/uL (4.8-10.8)
[2025-03-29 09:53] LABS: Blood Urea Nitrogen 21 mg/dl (7-17); Calcium 8.4 mg/dl (8.4-10.2); Carbon Dioxide 24 mmol/L (22-30); Chloride 108 mmol/L (98-107); Estimated Creatinine Clearance 57 ml/min; Glucose 88 mg/dl (70-99); Potassium 4.1 mmol/L (3.5-5.1); Sodium 140 mmol/L (135-145); eGFR > 60.00
[2025-03-29] MEDS: ROXICODONE 5 MG PO ×2 (09:59→22:56)
--- NOTE | 2025-03-29 10:46 | W.PN.HOSP.TC ---
Today's Communication/Plan
-
Assessment / Plan
Assessment / Plan
General: No acute distress, in significant pain with minimal movement
HEENT: NormoCephalic, Moist mucous membranes, Atraumatic
Respiratory: Clear and Non Labored Respirations
Cardiac: S1/S2 and Regular Rhythm; No Rub or Gallop
GI: Soft, Non Tender, Non Distended and Normal Bowel Sounds
Musculoskeletal: No Edema, no deformity, significant TTP left paraspinal in the region of L5-S1, left hip ROM limited by pain
Skin: Warm and dry
: NO Hdez
Neuro: Awake, Alert, Nonfocal/grossly intact
Psych: Calm and Intact Judgment/Insight
Ms. 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
presents now with worsening lumbar and left hip pain limiting her ability to ambulate. She reports pain in the left side of her lumbar region and left groin which travels down the front and back of her thigh to her heel. She reports that the pain
is extreme and associated with numbness and weakness. Today she also began experiencing urinary incontinence. Her symptoms began after gardening yesterday. She says she has been evaluated by an orthopedist for arthritis previously but not in many
years and was not ready for joint replacement at that time. She has been taking Tylenol and NSAIDs at home with very little relief.
In the ED she was hypertensive but otherwise hemodynamically stable. She had not taken her daily blood pressure medications prior to arrival today. Her labs were unremarkable. X-ray imaging showed mild to moderate degenerative changes of her left
hip and lumbar spine without evidence of acute fracture. She has been admitted for pain management and further evaluation.
Left hip and back pain:
- Acute on chronic, worse after working in her garden 1 day prior to arrival
- MRI without contrast of lumbar spine and left hip showed no evidence of fracture or avascular necrosis, mild to moderate degenerative changes of the left hip with a likely tear of the anterior superior labrum, lumbar spinal stenosis appears severe
but unchanged from previous
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
- Evaluated by neurology who would like to repeat MRI with contrast and will obtain lumbar puncture for CSF studies
- Continue Multimodal pain control
- PT/OT recommending SNF
Hypertension:
- Continue home amlodipine 5 mg and losartan 50 mg
DVT prophylaxis: Lovenox
CODE STATUS: DNR/DNI
Total time spent on today's encounter was 40 minutes.
Anticipated Discharge: 24 - 48 hours
Subjective/Interval History
-
Date of Service: March 29, 2025
Patient was seen and examined at bedside this morning. Remains in significant discomfort when laying on her back, better on her sides. Evaluated by neurology yesterday. Repeat MRI with contrast is pending. Also planning lumbar puncture.
Objective Data
-
Labs:
Laboratory Results
03/29/25
09:17
WBC 7.1
Hgb 14.3
Hct 40.7
Plt Count 263
Sodium 140
Potassium 4.1
Chloride 108 H
Carbon Dioxide 24
BUN 21 H
Creatinine 0.5 L
Glucose 88
Calcium 8.4
Vital Signs:
Vital Signs
Temp Pulse Resp BP Pulse Ox
97.7 F 62 16 152/78 98
03/29/25 07:55 03/29/25 07:55 03/29/25 07:55 03/29/25 07:55 03/29/25 09:00
I&O
03/28/25 03/29/25 03/30/25
06:59 06:59 06:59
Intake Total 480 / 480 480 / 480
Output Total 805 / 805
Balance 480 / 480 -325 / -325
Review of Systems
-
History Source: Patient
All other systems: Reviewed and negative
Musculoskeletal: Reports Joint Pain (Lumbar back pain)
Neuro: Reports Other (Left lower extremity radicular pain with significant burning in her jarvis)
Physical Exam
-
General: Pain
--- NOTE | 2025-03-29 10:54 | W.PN.NEURO.1 ---
Today's Communication / Plan
-
.
Subjective/Objective
Subjective Data
Date of Service: March 29, 2025
Neurology follow-up note
Ms. Christopher endorses ongoing moderate to severe burning pain in her left lower leg. She has been given gabapentin 300 mg twice TID and received hydromorphone 0.5 at 7:32 PM last evening in addition to oxycodone and lidocaine patch.
No post void residual was found.
ESR-3, CRP<5.
Chart review:
LS spine MRI wo yandel(03/27/2025) L4-L5: Spondylolisthesis with disc uncovering/bulge with resultant mild lateral recess narrowing and mild/moderate bilateral neuroforaminal narrowing. There is no significant central canal stenosis. 7 mm posteriorly
directed synovial facet cyst on the right.
L5-S1: Small disc bulge with a right subarticular disc extrusion and bilateral facet arthropathy with resultant mild right lateral recess narrowing, moderate/severe right-sided neuroforaminal narrowing and mild left-sided neuroforaminal narrowing.
L hip MRI-mild/moderate degenerative changes of the hip with a likely tear of the anterior/superior labrum.
PMH: LS DJD, right LS radiculopathy, history of omental infarct, osteoporosis
PSH: Appendectomy, partial omental resection, R femoral ORIF
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
FH: Noncontributory
All:NKDA
ROS: Constitutional: Negative. Negative for chills, fever and unexpected weight change.
HENT: Negative for ear pain, hearing loss, tinnitus and trouble swallowing.
Eyes: Negative. Negative for photophobia, pain and visual disturbance.
Respiratory: Negative for cough, choking and shortness of breath.
Cardiovascular: Negative for chest pain, palpitations and leg swelling.
Gastrointestinal: Negative for abdominal pain and vomiting.
Endocrine: Negative. Negative for cold intolerance.
Genitourinary: Positive for incontinence. Negative for dysuria, urgency, frequency.
Musculoskeletal: Positive for leg cramps at night, right femoral pain, back pain, left leg pain
Skin: Negative for rash.
Allergic/Immunologic: Negative. Negative for immunocompromised state.
Neurological: Positive for left leg burning pain
Psychiatric/Behavioral: Negative for behavioral problems, confusion and hallucinations.
General: Well developed. In no acute distress.
Cardio: Regular rate and rhythm without murmur. Extremities are without cyanosis or edema.
Neuro:
Mental Status: Alert, oriented to person, place, and date. Normal attention and recall. Good fund of knowledge. Follows complex requests across the midline. Comprehension, naming, and repetition intact. Immediate and delayed recall 3/3.
Cranial Nerves: Pupils are equally round and reactive to light. EOMs full. Visual lima full to confrontation. No ptosis. No nystagmus. V1-V3 intact to light touch and pinprick bilaterally, symmetric. Face symmetric. Normal hearing AU. The
palate elevated well. SCMs and traps 5/5. Tongue midline. No dysarthria.
Motor: Normal bulk and tone. No pronator or arm drift. Strength 5/5 throughout except for pain limited bilateral hip flexion and knee extension. Full strength in dorsiflexion and plantarflexion. No clonus.
Reflexes: 2+ throughout the upper extremities. R patellar 2+, L patellar-0/2, AJs-0/2. Plantar responses flexor bilaterally.
Sensory: Normal proprioception bilaterally
Coordination: No dysmetria or tremor.
Gait: deferred
Assessment and Plan:
I. L LS plexopathy vs cauda equina syndrome.
II. Chronic right L5-S1 radiculopathy
III. Urinary incontinence
-Fall precautions
-LS spine MRI with yandel
-Increase gabapentin to 600 mg 3 times daily as tolerated
-PT
-CSF(cell count, protein, glucose, cx, cytology)
-OP NCS/EMG os LEs in 3 weeks.
-Urology consult
-DVT prophylaxis
I personally reviewed all radiology and labs along with past medical records pertinent to current medical problems. Total time spent in patient care is 40 minutes.
Thank you for allowing us to participate in the care of this patient. We will continue to follow. Please do not hesitate to contact us with any questions or concerns.
Objective Data
Vital Signs
Temp Pulse Resp BP Pulse Ox
36.5 C 62 16 152/78 98
03/29/25 07:55 03/29/25 07:55 03/29/25 07:55 03/29/25 07:55 03/29/25 09:00
Lab Results
03/29/25 09:17
03/29/25 09:17
PT 13.4 Sec (11.4-14.6) 03/27/25 07:15
INR 0.99 03/27/25 07:15
APTT 32.8 Sec (23.4-35.0) 03/27/25 07:15
Sodium 140 mmol/L (135-145) 03/29/25 09:17
Potassium 4.1 mmol/L (3.5-5.1) 03/29/25 09:17
BUN 21 mg/dl (7-17) H 03/29/25 09:17
Glucose 88 mg/dl (70-99) 03/29/25 09:17
Calcium 8.4 mg/dl (8.4-10.2) 03/29/25 09:17
Patient Allergies
No Known Allergies Allergy (Verified 06/30/23 15:28)
Vital Signs and Labs
-
Vital Signs and Labs:
Vital Signs
Temp Pulse Resp BP Pulse Ox
36.5 C 62 16 152/78 98
03/29/25 07:55 03/29/25 07:55 03/29/25 07:55 03/29/25 07:55 03/29/25 09:00
Lab Results
03/29/25 09:17
03/29/25 09:17
PT 13.4 Sec (11.4-14.6) 03/27/25 07:15
INR 0.99 03/27/25 07:15
APTT 32.8 Sec (23.4-35.0) 03/27/25 07:15
Sodium 140 mmol/L (135-145) 03/29/25 09:17
Potassium 4.1 mmol/L (3.5-5.1) 03/29/25 09:17
BUN 21 mg/dl (7-17) H 03/29/25 09:17
Glucose 88 mg/dl (70-99) 03/29/25 09:17
Calcium 8.4 mg/dl (8.4-10.2) 03/29/25 09:17
Medications
-
Medications:
Generic Name Dose Route Start Last Admin
Trade Name Freq PRN Reason Stop Dose Admin
Acetaminophen 1,000 mg 03/26/25 22:00 03/29/25 08:21
Acetaminophen 500 Mg Tablet PO 04/23/25 21:59 1,000 mg
TID KYM Administration
Cyclobenzaprine HCl 5 mg 03/28/25 10:15 03/29/25 08:21
Cyclobenzaprine 10 Mg Tablet PO 04/25/25 10:14 5 mg
TID KYM Administration
Enoxaparin Sodium 40 mg 03/26/25 18:00 03/28/25 17:22
Enoxaparin Sodium 40 Mg/0.4 Ml Syringe SC 04/23/25 17:59 40 mg
QPM KYM Administration
Gabapentin 300 mg 03/28/25 16:00 03/29/25 08:21
Gabapentin 300 Mg Capsule PO 04/25/25 15:59 300 mg
TID KYM Administration
Hydromorphone HCl 0.5 mg 03/26/25 16:11 03/28/25 19:32
Hydromorphone 0.5 Mg/0.5 Ml Syringe IV 04/09/25 16:10 0.5 mg
Q4HPRN PRN Administration
breakthrough pain
Lidocaine 1 patch 03/26/25 16:45 03/29/25 08:21
Lidocaine 4% Topical Patch TOPICAL 04/23/25 16:44 1 patch
DAILY KYM Administration
Protocol
Oxycodone HCl 5 mg 03/26/25 16:11 03/29/25 09:59
Oxycodone 5 Mg Regular Release Tablet PO 04/09/25 16:10 5 mg
Q4HPRN PRN Administration
moderate to sev pain
Patch Removal 0 patch 03/27/25 20:00 03/28/25 19:31
Remove Lidocaine Patch REMOVE 04/24/25 19:59 1 patch
DAILY@2000 KYM Administration
Polyethylene Glycol 17 grams 03/26/25 16:11
Polyethylene Glycol Powder 17 Grams Packet PO 04/23/25 16:10
DAILYPRN PRN
constipation
Senna/Docusate Sodium 1 tablet 03/26/25 16:11
Docusate W/Senna (Phuong-Colace) Tablet PO 04/23/25 16:10
BIDPRN PRN
constipation
Sodium Chloride 0 flush 03/26/25 18:00
Sodium Chloride 0.9% (Flush) Syringe IV 04/23/25 17:59
PER PROTOCOL KYM
Home Medications
-
Home Medications
ascorbic acid (vitamin C) 1,000 mg tablet 1,000 mg PO DAILY Supplement 09/21/11
vitamin E 268 mg (400 unit) capsule 400 unit PO DAILY Supplement 09/21/11
amlodipine 5 mg tablet (Norvasc) 5 mg PO HS Blood Pressure 06/30/23
cholecalciferol (vitamin D3) 25 mcg (1,000 unit) capsule (Vitamin D3) 25 mcg PO DAILY Supplement 06/30/23
flaxseed oil 1,000 mg capsule 1,000 mg PO DAILY Supplement 06/30/23
losartan 50 mg tablet 50 mg PO HS Blood Pressure 06/30/23
vitamin B complex 1 tab PO DAILY Supplement 06/30/23
Evenity 1 dose SC QMONTH 03/26/25
acetaminophen 500 mg tablet (Tylenol Extra Strength) 1,000 mg PO Q6H PRN mild pain 03/26/25
acetaminophen 650 mg tablet,extended release (Tylenol 8 Hour) 1,300 mg PO [id number] PRN mild pain 03/26/25
calcium 250 mg tablet 500 mg PO BID Supplement 03/26/25
gabapentin 300 mg capsule 300 mg PO DAILYPRN PRN mild pain 03/26/25
ibuprofen 200 mg tablet 200 mg PO DAILYPRN PRN mild pain 03/26/25
therapeutic multivitamin 1 tab PO DAILY Supplement 03/26/25
[2025-03-29] MEDS: DILAUDID 0.5 MG IV (14:30)
[2025-03-29] MEDS: NEURONTIN 600 MG PO ×2 (15:10→21:06)
[2025-03-29] MEDS: LOVENOX 40 MG SC (15:11)
[2025-03-29 15:43] VITALS: BP 157/73
[2025-03-29] MEDS: COLACE 100 MG PO (21:45)
[2025-03-29 23:30] VITALS: BP 127/70
[2025-03-30] MEDS: DILAUDID 0.5 MG IV ×2 (01:19→15:13)
[2025-03-30] MEDS: ROXICODONE 5 MG PO ×2 (06:10→18:05)
[2025-03-30 07:30] VITALS: BP 107/71
--- NOTE | 2025-03-30 07:43 | W.PN.NEURO.1 ---
Subjective/Objective
Subjective Data
Date of Service: March 30, 2025
Objective Data
Vital Signs
Temp Pulse Resp BP Pulse Ox
36.6 C 64 16 127/70 95
03/29/25 23:30 03/29/25 23:30 03/29/25 23:30 03/29/25 23:30 03/29/25 23:30
PT 13.4 Sec (11.4-14.6) 03/27/25 07:15
INR 0.99 03/27/25 07:15
APTT 32.8 Sec (23.4-35.0) 03/27/25 07:15
Sodium 140 mmol/L (135-145) 03/29/25 09:17
Potassium 4.1 mmol/L (3.5-5.1) 03/29/25 09:17
BUN 21 mg/dl (7-17) H 03/29/25 09:17
Glucose 88 mg/dl (70-99) 03/29/25 09:17
Calcium 8.4 mg/dl (8.4-10.2) 03/29/25 09:17
Patient Allergies
No Known Allergies Allergy (Verified 06/30/23 15:28)
Past History
Past History
ED Past Medical History: HTN
ED Past Surgical History: Appendectomy and Gynecological
Social History
Tobacco: Non-smoker
Personal:
Living: with family
Family History
Family History: Negative Diabetes, Hypertension, Early CAD, Asthma or Cancer
Medications
-
Medications:
Generic Name Dose Route Start Last Admin
Trade Name Freq PRN Reason Stop Dose Admin
Acetaminophen 1,000 mg 03/26/25 22:00 03/29/25 21:06
Acetaminophen 500 Mg Tablet PO 04/23/25 21:59 1,000 mg
TID KYM Administration
Cyclobenzaprine HCl 5 mg 03/28/25 10:15 03/29/25 21:06
Cyclobenzaprine 10 Mg Tablet PO 04/25/25 10:14 5 mg
TID KYM Administration
Docusate Sodium 100 mg 03/29/25 22:00 03/29/25 21:45
Docusate Sodium 100 Mg Capsule PO 04/26/25 21:59 100 mg
BID KYM Administration
Enoxaparin Sodium 40 mg 03/26/25 18:00 03/29/25 15:11
Enoxaparin Sodium 40 Mg/0.4 Ml Syringe SC 04/23/25 17:59 40 mg
QPM KYM Administration
Gabapentin 600 mg 03/29/25 16:00 03/29/25 21:06
Gabapentin 300 Mg Capsule PO 04/25/25 15:59 600 mg
TID KYM Administration
Hydromorphone HCl 0.5 mg 03/26/25 16:11 03/30/25 01:19
Hydromorphone 0.5 Mg/0.5 Ml Syringe IV 04/09/25 16:10 0.5 mg
Q4HPRN PRN Administration
breakthrough pain
Lidocaine 1 patch 03/26/25 16:45 03/29/25 08:21
Lidocaine 4% Topical Patch TOPICAL 04/23/25 16:44 1 patch
DAILY KYM Administration
Protocol
Oxycodone HCl 5 mg 03/26/25 16:11 03/30/25 06:10
Oxycodone 5 Mg Regular Release Tablet PO 04/09/25 16:10 5 mg
Q4HPRN PRN Administration
moderate to sev pain
Patch Removal 0 patch 03/27/25 20:00 03/29/25 21:07
Remove Lidocaine Patch REMOVE 04/24/25 19:59 1 patch
DAILY@2000 KYM Administration
Polyethylene Glycol 17 grams 03/26/25 16:11
Polyethylene Glycol Powder 17 Grams Packet PO 04/23/25 16:10
DAILYPRN PRN
constipation
Senna/Docusate Sodium 1 tablet 03/26/25 16:11
Docusate W/Senna (Phuong-Colace) Tablet PO 04/23/25 16:10
BIDPRN PRN
constipation
Sodium Chloride 0 flush 03/26/25 18:00
Sodium Chloride 0.9% (Flush) Syringe IV 04/23/25 17:59
PER PROTOCOL KYM
[2025-03-30 08:02] LABS: % Basophils 0.3 % (0-2); % Eosinophils 2.2 % (0-6); % Immature Granulocytes 0.3 % (0-0.5); % Lymphocytes 45.6 % (20.5-51.1); % Monocytes 8.5 % (1.7-9.3); % Neutrophils 43.1 % (42.2-75.2); Absolute Eosinophils 0.2 10^3/uL (0-0.7); Absolute Monocytes 0.6 10^3/uL (0.1-0.6); Absolute Neutrophils 2.9 10^3/uL (1.4-6.5); Hematocrit 36.5 % (37.0-47.0); Hemoglobin 12.7 g/dL (12.0-16.0); Mean Corp Hgb Conc. 34.8 g/dL (33.0-37.0); Mean Corpuscular Hgb 30.8 pg (27.0-31.0); Mean Corpuscular Volume 88.4 fL (81.0-99.0); Mean Platelet Volume 11.5 fL (7.4-10.4); Nucleated Red Blood Cells % 0 %; Platelet Count 214 10^3/uL (130-400); Red Blood Cell Count 4.13 10^6/uL (4.20-5.40); White Blood Cell Count 6.7 10^3/uL (4.8-10.8)
[2025-03-30] MEDS: LIDOCAINE 4% PATCH 1 PATCH TOPICAL (08:14)
[2025-03-30] MEDS: TYLENOL 1000 MG PO ×3 (08:14→21:33)
[2025-03-30] MEDS: NEURONTIN 600 MG PO (08:15)
[2025-03-30] MEDS: FLEXERIL 5 MG PO ×3 (08:15→21:33)
[2025-03-30] MEDS: COLACE 100 MG PO ×2 (08:15→19:23)
[2025-03-30 08:37] LABS: Blood Urea Nitrogen 21 mg/dl (7-17); Calcium 8.3 mg/dl (8.4-10.2); Carbon Dioxide 22 mmol/L (22-30); Chloride 111 mmol/L (98-107); Estimated Creatinine Clearance 57 ml/min; Potassium 4.3 mmol/L (3.5-5.1); Sodium 139 mmol/L (135-145); eGFR > 60.00
--- NOTE | 2025-03-30 08:50 | W.PN.NEURO.1 ---
Addendum entered and electronically signed by Arley Michelle MD 03/30/25 11:06:
Studies reviewed.
I have personally examined the patient. I reviewed and agree with the MANUAL WINDER's Note.
My addenda:
Awake, alert, interactive. No acute distress.
Speech intact.
Follows 2-step requests w/o difficulty. No tremor.
Extra-ocular movements grossly intact.
Facial movements full and symmetric. Hearing intact to normal conversational volume.
Normal UE movements bilaterally.
Reflexes: absent throughout
Neck: full ROM.
Chest: no dyspnea
Heart: no JVD
Ext: (-) Clubbing, (-) Cyanosis, (-) Edema
IMPRESSIONS/RECOMMENDATIONS:
Abrupt onset of urinary retention with hyporeflexia, chronic back pain, and acute left hip pain. MRI imaging failed to demonstrate significant abnormalities with and without contrast
Differential diagnosis at this time includes an acute ganglionopathy, acute peripheral neuropathy of unclear etiology which may in part be due to pyridoxine level abnormalities
Check MRI of thoracic spine to determine if there is referred pain from an higher level structural abnormality
Consider MRA of the thoracic spine to determine if there has been a spinal cord infarct
Agree with lumbar puncture to determine if there is an inflammatory component producing symptomatology
Consider inpatient EMG testing
Revised pain control by changing gabapentin to pregabalin
Must consider the possibility of urinary retention secondary to opioids
D/W patient
All questions answered.
Will continue to follow patient.
Original Note:
Documented by User: Rachelle Barrera NP 03/30/25 10:37
Today's Communication / Plan
-
-Fall precautions
-Switch Gabapentin to Pregabalin 100 mg TID to optimize pain control
-PT
-CSF(cell count, protein, glucose, cx, cytology)
-may need outpatient NCS/EMG of LEs
-consider Urology consult
-DVT prophylaxis
Neuro Assessment/Plan
Assessment
Ms. Ashwin is an 80-year-old female with a past medical history of chronic back pain, hypertension, osteoporosis, omental infarction (status post partial omental resection), and prior right hip fracture after fall, status post ORIF (07/01/2023) who
presented to [facility] on 03/26/2025 with worsening lumbar and left hip pain limiting her ability to ambulate with urinary incontinence.
LS spine MRI with and wo (03/29/2025): L4-5: Moderate to large left foraminal extruded disc protrusion measuring 1.3 cm transverse by 0.7 cm AP. Secondary left foraminal stenosis compressing the exiting left L4 nerve root. This was also present
previously, though not specifically mentioned. The previous extra-articular synovial cyst at the posterior margin of the right L4-5 facet has resolved. Unremarkable conus terminating at L1-2.
LS spine MRI wo yandel(03/27/2025) L4-L5: Spondylolisthesis with disc uncovering/bulge with resultant mild lateral recess narrowing and mild/moderate bilateral neuroforaminal narrowing. There is no significant central canal stenosis. 7 mm posteriorly
directed synovial facet cyst on the right.
L5-S1: Small disc bulge with a right subarticular disc extrusion and bilateral facet arthropathy with resultant mild right lateral recess narrowing, moderate/severe right-sided neuroforaminal narrowing and mild left-sided neuroforaminal narrowing.
L hip MRI-mild/moderate degenerative changes of the hip with a likely tear of the anterior/superior labrum.
Plan
I. L LS plexopathy vs cauda equina syndrome.
II. Chronic right L5-S1 radiculopathy
III. Urinary incontinence
-Fall precautions
-Switch Gabapentin to Pregabalin 100 mg TID to optimize pain control
-PT
-CSF(cell count, protein, glucose, cx, cytology)
-may need outpatient NCS/EMG of LEs
-consider Urology consult
-DVT prophylaxis
Subjective/Objective
Subjective Data
Date of Service: March 30, 2025
Laying on right side makes pain better when laying on back makes pain worse. Given Tylenol and Gabapentin without relief. Pain is currently 6-07/17. Continues to have issues with bladder and unable to void.
Objective Data
Vital Signs
Temp Pulse Resp BP Pulse Ox
97.6 F 62 16 107/71 100
03/30/25 07:30 03/30/25 07:30 03/30/25 07:30 03/30/25 07:30 03/30/25 07:30
Lab Results
03/30/25 07:03
03/30/25 07:03
PT 13.4 Sec (11.4-14.6) 03/27/25 07:15
INR 0.99 03/27/25 07:15
APTT 32.8 Sec (23.4-35.0) 03/27/25 07:15
Sodium 139 mmol/L (135-145) 03/30/25 07:03
Potassium 4.3 mmol/L (3.5-5.1) 03/30/25 07:03
BUN 21 mg/dl (7-17) H 03/30/25 07:03
Glucose 88 mg/dl (70-99) 03/29/25 09:17
Calcium 8.3 mg/dl (8.4-10.2) L 03/30/25 07:03
Patient Allergies
No Known Allergies Allergy (Verified 06/30/23 15:28)
Review of Systems
-
History Source: Patient
Constitutional: No Symptoms
EENT: No Symptoms Reported
Respiratory: No Symptoms
Cardiac: No Symptoms
Abdomen/GI: No Symptoms
Genitourinary: Difficulty Voiding
Musculoskeletal: Back Pain
Skin: No Symptoms
Neuro: No Symptoms
Physical Exam
-
General: Appears Stated Age
HEENT: Normocephalic, Atraumatic and Anicteric
Neck: Full Range of Motion
Respiratory: No Dyspnea
Cardiac: No JVD
GI: Non-distended
Skin: Unremarkable
Extremities: No Clubbing, No Cyanosis and No Edema
Psych: Unremarkable
Extended Neurological Exam
Mood & Affect: Mood Unremarkable
Attention Span & Concentration: Awake, Alert, Interactive and No Difficulty with 2 Step Request
Memory: Unremarkable
Tremor: Hand Tremor Absent and Head Tremor Absent
Involuntary Movement: None
Speech: Quality Unremarkable, Quantity Unremarkable and Rate of Production Unremarkable
Cranial Nerve II: Left Eye: Visual Powell Intact
Cranial Nerve II: Right Eye: Visual Powell Intact
Cranial Nerves III, IV, : Extraocular Movement: Extraocular Movement Full in all Directions
Cranial Nerve VII: Facial Symmetry: Normal Facial Symmetry
Cranial Nerve VIII: Hearing: Unremarkable Hearing to Normal Conversational Volume
Muscle Strength, Overall: Full Throughout
Muscle Bulk & Tone: Bulk Unremarkable and Tone Unremarkable
Pronator Drift: No Drift in Upper Extremities and No Drift in Lower Extremities
Deep Tendon Reflexes: Absent (LEs)
Coordination: [id number] Testing Unremarkable
Data Reviewed
-
MRI Lumbar Spine: Report Reviewed and Image Reviewed
Labs: Report Reviewed
Reviewed with: Physician and Patient
Old Records: Summarized

Documented by User: Arley Michelle MD 03/30/25 10:55
Past History
Past History
ED Past Medical History: HTN
ED Past Surgical History: Appendectomy and Gynecological
Social History
Tobacco: Non-smoker
Personal:
Living: with family
Family History
Family History: Negative Diabetes, Hypertension, Early CAD, Asthma or Cancer
Medications
-
Medications:
Generic Name Dose Route Start Last Admin
Trade Name Freq PRN Reason Stop Dose Admin
Acetaminophen 1,000 mg 03/26/25 22:00 03/30/25 08:14
Acetaminophen 500 Mg Tablet PO 04/23/25 21:59 1,000 mg
TID KYM Administration
Cyclobenzaprine HCl 5 mg 03/28/25 10:15 03/30/25 08:15
Cyclobenzaprine 10 Mg Tablet PO 04/25/25 10:14 5 mg
TID KYM Administration
Docusate Sodium 100 mg 03/29/25 22:00 03/30/25 08:15
Docusate Sodium 100 Mg Capsule PO 04/26/25 21:59 100 mg
BID KYM Administration
Enoxaparin Sodium 40 mg 03/26/25 18:00 03/29/25 15:11
Enoxaparin Sodium 40 Mg/0.4 Ml Syringe SC 04/23/25 17:59 40 mg
QPM KYM Administration
Hydromorphone HCl 0.5 mg 03/26/25 16:11 03/30/25 01:19
Hydromorphone 0.5 Mg/0.5 Ml Syringe IV 04/09/25 16:10 0.5 mg
Q4HPRN PRN Administration
breakthrough pain
Lidocaine 1 patch 03/26/25 16:45 03/30/25 08:14
Lidocaine 4% Topical Patch TOPICAL 04/23/25 16:44 1 patch
DAILY KYM Administration
Protocol
Oxycodone HCl 5 mg 03/26/25 16:11 03/30/25 06:10
Oxycodone 5 Mg Regular Release Tablet PO 04/09/25 16:10 5 mg
Q4HPRN PRN Administration
moderate to sev pain
Patch Removal 0 patch 03/27/25 20:00 03/29/25 21:07
Remove Lidocaine Patch REMOVE 04/24/25 19:59 1 patch
DAILY@2000 KYM Administration
Polyethylene Glycol 17 grams 03/26/25 16:11
Polyethylene Glycol Powder 17 Grams Packet PO 04/23/25 16:10
DAILYPRN PRN
constipation
Pregabalin 100 mg 03/30/25 16:00
Pregabalin 50 Mg Capsule PO 04/27/25 15:59
TID KYM
Senna/Docusate Sodium 1 tablet 03/26/25 16:11
Docusate W/Senna (Phuong-Colace) Tablet PO 04/23/25 16:10
BIDPRN PRN
constipation
Sodium Chloride 0 flush 03/26/25 18:00
Sodium Chloride 0.9% (Flush) Syringe IV 04/23/25 17:59
PER PROTOCOL KYM
[2025-03-30 09:25] LABS: Glucose 85 mg/dl (70-99)
[2025-03-30] MEDS: LYRICA 100 MG PO ×3 (09:28→21:33)
--- NOTE | 2025-03-30 11:24 | W.PN.HOSP.TC ---
Addendum entered and electronically signed by Niraj Coulter DO 03/30/25 11:29:
Acute urinary retention due to constipation, bowel regimen ordered. Discussed with nursing. Would avoid Hdez catheter for now.
Original Note:
Today's Communication/Plan
-
Bowel regimen
Await MRI
LP
Assessment / Plan
Assessment / Plan
Gen-AAOx3, NAD
HEENT-NC, AT, anicteric, clear oral mm
Neck-supple
CV-reg, no M, +S1/S2
Lungs-clear B/L
Abd-soft, NT, ND
Ext-no edema
Musculoskeletal-no cyanosis, clubbing
Skin-warm and dry
Neuro-grossly non-focal
Psych-calm, cooperative
Left lateral lumbar radiculopathy/intractable pain -
- Acute on chronic, worse after working in her garden 1 day prior to arrival
- MRI without contrast of lumbar spine and left hip showed no evidence of fracture or avascular necrosis, mild to moderate degenerative changes of the left hip with a likely tear of the anterior superior labrum, lumbar spinal stenosis appears severe
but unchanged from previous
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
- Evaluated by neurology who would like to repeat MRI with contrast and will obtain lumbar puncture for CSF studies
- Continue Multimodal pain control
- PT/OT recommending SNF
Essential hypertension:
- Continue home amlodipine 5 mg and losartan 50 mg
Osteoporosis - on monthly Romosozumab injections.
Constipation -bowel regimen ordered.
DVT prophylaxis: Lovenox
DNR/DNI
Dispo -SNF when medically stable.
Anticipated Discharge: 24 - 48 hours
Subjective/Interval History
-
Date of Service: March 30, 2025
Patient seen and examined. Complaining of lower back pain with radiation down the leg.
Objective Data
-
Labs:
Laboratory Results
03/30/25
07:03
WBC 6.7
Hgb 12.7
Hct 36.5 L
Plt Count 214
Sodium 139
Potassium 4.3
Chloride 111 H
Carbon Dioxide 22
BUN 21 H
Creatinine 0.5 L
Glucose 85
Calcium 8.3 L
Vital Signs:
Vital Signs
Temp Pulse Resp BP Pulse Ox
97.6 F 62 16 107/71 100
03/30/25 07:30 03/30/25 07:30 03/30/25 07:30 03/30/25 07:30 03/30/25 07:30
I&O
03/29/25 03/30/25 03/31/25
06:59 06:59 06:59
Intake Total 480 / 480 450 / 450
Output Total 805 / 805 425 / 425
Balance -325 / -325
Review of Systems
-
History Source: Patient
All other systems: Reviewed and negative
[2025-03-30] MEDS: MIRALAX 17 GRAMS PO (11:50)
[2025-03-30] MEDS: SENOKOT-S 1 TABLET PO ×2 (11:51→19:23)
[2025-03-30] MEDS: DULCOLAX 10 MG RECTAL (11:51)
--- NOTE | 2025-03-30 12:30 | CM ---
Addendum entered by Anu Elmore 03/30/25 14:11:
Spoke w/ patient about needing additional facilities. Per patient, she was at [facility] before and has a friend that's been to [facility].
SNF list provided for patient to review for additional facilities
Referrals sent to [facility] and [facility]
Original Note:
Chart reviewed. Care ongoing at this time
Patient cont to be recommended skilled rehab at d/c. [facility] referred to, unfortunately unable to accept due to being out of network
CM will discuss other options w/ patient and refer to additional facilities
Will need auth prior to d/c
Plan: SNF
[2025-03-30 15:25] VITALS: BP 138/72
[2025-03-30 15:42] LABS: Rheumatoid Agglutinin Less Than 10 IU (<10 IU)
[2025-03-30] MEDS: LOVENOX 40 MG SC (17:20)
[2025-03-30 23:19] VITALS: BP 119/63
[2025-03-31] VITALS (8 sets, daily range): BP systolic 64–159; BP diastolic 58–77
[2025-03-31] MEDS: ROXICODONE 5 MG PO (04:21)
[2025-03-31] MEDS: DILAUDID 0.5 MG IV (06:07)
[2025-03-31] MEDS: LIDOCAINE 4% PATCH 1 PATCH TOPICAL (07:29)
[2025-03-31] MEDS: FLEXERIL 5 MG PO ×3 (07:29→21:50)
[2025-03-31] MEDS: MIRALAX 17 GRAMS PO (07:29)
[2025-03-31] MEDS: SENOKOT-S 1 TABLET PO ×2 (07:29→19:46)
[2025-03-31] MEDS: LYRICA 100 MG PO ×3 (07:30→21:50)
[2025-03-31] MEDS: TYLENOL 1000 MG PO ×3 (07:30→21:50)
[2025-03-31] MEDS: COLACE 100 MG PO (07:31)
--- NOTE | 2025-03-31 13:18 | W.PN.HOSP.TC ---
Addendum entered and electronically signed by Niraj Coulter DO 03/31/25 20:15:
Will ask for neurosurgery input given Lumbar MRI with contrast showing large disc protrusion at L4-L5 with compression of left L4 nerve root.
Will ask neurosurgery for input.
Original Note:
Today's Communication/Plan
-
Lumbar puncture
CT chest
Adjust analgesics
PT
Bowel regimen
Assessment / Plan
Assessment / Plan
Gen-AAOx3, NAD
HEENT-NC, AT, anicteric, clear oral mm
Neck-supple
CV-reg, no M, +S1/S2
Lungs-clear B/L
Abd-soft, NT, ND
Ext-no edema
Musculoskeletal-no cyanosis, clubbing
Skin-warm and dry
Neuro-grossly non-focal
Psych-calm, cooperative
Left lateral lumbar radiculopathy/intractable pain -
- Acute on chronic, worse after working in her garden 1 day prior to arrival
- MRI without contrast of lumbar spine and left hip showed no evidence of fracture or avascular necrosis, mild to moderate degenerative changes of the left hip with a likely tear of the anterior superior labrum, lumbar spinal stenosis appears severe
but unchanged from previous
- Thoracic spine MRI shows severe discogenic degenerative disease at C5/C6 with a central disc osteophyte complex causing mild spinal cord compression, moderate-sized paraesophageal hiatal hernia, 2.1 cm irregularly shaped enhancing subpleural
airspace consolidation in the posterior apical segment of the left upper lobe.
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
- Evaluated by neurology, lumbar puncture pending.
- Continue Multimodal pain control
- PT/OT recommending SNF
- DC IV Dilaudid, use 5 mg oxycodone as needed for moderate pain, 10 mg for severe pain. Discussed with patient.
- Continue bowel regimen.
Acute urinary retention -suspect multifactorial etiology including constipation, opiates, limited mobility. Continue bowel regimen. Anticipate improvement with conservative management. Would avoid Hdez catheter.
Left upper lobe lung mass -will obtain CT chest with contrast. Denies history of smoking or malignancy.
Essential hypertension:
- Continue home amlodipine 5 mg and losartan 50 mg
Osteoporosis - on monthly Romosozumab injections.
Constipation -bowel regimen ordered.
DVT prophylaxis: Lovenox
DNR/DNI
Dispo -SNF when medically stable.
Anticipated Discharge: Within 24 hours
Subjective/Interval History
-
Date of Service: March 31, 2025
Patient seen and examined. Her pain level has not changed. No other complaints.
Objective Data
-
Vital Signs:
Vital Signs
Temp Pulse Resp BP Pulse Ox
98.0 F 64 16 107/65 98
03/31/25 07:30 03/31/25 07:30 03/31/25 07:30 03/31/25 07:30 03/31/25 09:46
I&O
03/30/25 03/31/25 04/01/25
06:59 06:59 06:59
Intake Total 450 / 450 900 / 900
Output Total 425 / 425 250 / 250
Balance 650 / 650
Review of Systems
-
History Source: Patient
All other systems: Reviewed and negative
[2025-03-31] MEDS: ROXICODONE 10 MG PO ×2 (13:48→19:51)
--- NOTE | 2025-03-31 15:49 | PTCARENOTE ---
Received pt from IR s/p LP. Pulled over to bed assist x2. Pt bedrest until 16:10. Pt reports no pain at puncture site. VSS.
[2025-03-31 16:05] LABS: Spinal Fluid Glucose 57 mg/dl (40-70); Spinal Fluid Protein 77 mg/dl (12-60)
[2025-03-31 16:27] LABS: CSF Clarity Clear; CSF Color Colorless; CSF Tube # 1; Red Cell Count/CSF 0 mm^3; White Cell Count/CSF 0 mm^3 (0-5)
[2025-03-31 16:28] LABS: CSF Color Colorless; CSF Tube # 4; CSF Tube # Clarity Clear; Red Cell Count/CSF 0 mm^3; White Blood Cell Count/CSF 0 mm^3 (0-5)
[2025-03-31] MEDS: LOVENOX 40 MG SC (17:46)
[2025-04-01] VITALS (7 sets, daily range): BP systolic 80–135; BP diastolic 59–70; PULSE 65
[2025-04-01] MEDS: LIDOCAINE 4% PATCH 1 PATCH TOPICAL (07:38)
[2025-04-01] MEDS: TYLENOL 1000 MG PO ×3 (07:39→21:12)
[2025-04-01] MEDS: MIRALAX 17 GRAMS PO (07:39)
[2025-04-01] MEDS: LYRICA 100 MG PO ×3 (07:39→21:12)
[2025-04-01] MEDS: FLEXERIL 5 MG PO ×3 (07:39→21:12)
[2025-04-01] MEDS: SENOKOT-S 1 TABLET PO ×2 (07:39→20:24)
[2025-04-01] MEDS: ROXICODONE 10 MG PO ×3 (09:13→22:29)
--- NOTE | 2025-04-01 09:57 | W.PN.HOSP.TC ---
Today's Communication/Plan
-
Hold Lovenox today
Dulcolax suppository
Epidural steroid injection
Neurosurgery consult
PT/OT
Assessment / Plan
Assessment / Plan
Gen-AAOx3, NAD
HEENT-NC, AT, anicteric, clear oral mm
Neck-supple
CV-reg, no M, +S1/S2
Lungs-clear B/L
Abd-soft, NT, ND
Ext-no edema
Musculoskeletal-no cyanosis, clubbing
Skin-warm and dry
Neuro-grossly non-focal
Psych-calm, cooperative
Left lateral lumbar radiculopathy/intractable pain -MRI with and without contrast confirms L4-L5 large left foraminal disc extrusion measuring 1.3 cm and causing compression of the exiting left L4 nerve root.
Awaiting lumbar epidural steroid injection by IR today.
Awaiting neurosurgery consult.
Continue analgesics, PT.
So far no concerning findings on lumbar puncture.
Acute urinary retention -suspect multifactorial etiology including constipation, opiates, limited mobility. Continue bowel regimen. Anticipate improvement with conservative management. Would avoid Hdez catheter.
Left upper lobe lung mass -CT chest completed, 1.1 x 1.3 cm ill-defined focal opacity in the posterior medial left upper lobe noted. Recommend outpatient pulmonary follow-up. Discussed in detail with patient. She denies smoking history.
Essential hypertension -she takes amlodipine 5 mg and losartan 50 mg at home, apparently has not received any doses in the hospital. Despite this, blood pressure has been controlled.
Osteoporosis - on monthly Romosozumab injections.
Constipation -bowel regimen ordered. Last bowel movement was 2 days ago, she agrees to get another suppository today.
DVT prophylaxis: Lovenox, hold today's dose given plans for RIVAS by IR today.
DNR/DNI
Dispo -SNF when medically stable.
Anticipated Discharge: > 48 hours
Subjective/Interval History
-
Date of Service: April 01, 2025
Patient seen and examined, still with left lower extremity pain.
Objective Data
-
Vital Signs:
Vital Signs
Temp Pulse Resp BP Pulse Ox
98.6 F 63 16 120/70 97
04/01/25 07:30 04/01/25 07:30 04/01/25 07:30 04/01/25 07:30 04/01/25 07:30
I&O
03/31/25 04/01/25 04/02/25
06:59 06:59 06:59
Intake Total 900 / 900 1620 / 1620
Output Total 250 / 250 230 / 230
Balance 650 / 650 1390 / 1390
Review of Systems
-
History Source: Patient
All other systems: Reviewed and negative
[2025-04-01] MEDS: DULCOLAX 10 MG RECTAL (10:31)
--- NOTE | 2025-04-01 10:34 | CON.NS ---
Consultation
-
Date/Time Consultation Performed: 04/01/2025
Chief Complaint
-
Left leg pain
History of Present Illness
This is a 80-year-old female with 5 to 6-day history of left-sided L4 distribution leg pain. She states it is a burning/aching pain in her left leg. She states that it is difficult to ambulate secondary to pain. She also had urinary retention
which is now resolving. MRI was completed of the lumbar spine and is available for review.
Review of Systems
-
10 point review of systems negative except stated in the HPI
Medication and Allergies
Home Medications
Home Medications
�Medication �Instructions �Recorded
ascorbic acid (vitamin C) 1,000 mg 1,000 mg PO DAILY Supplement 09/21/11
tablet
vitamin E 268 mg (400 unit) capsule 400 unit PO DAILY Supplement 09/21/11
amlodipine 5 mg tablet (Norvasc) 5 mg PO HS Blood Pressure 06/30/23
cholecalciferol (vitamin D3) 25 25 mcg PO DAILY Supplement 06/30/23
mcg (1,000 unit) capsule (Vitamin
D3)
flaxseed oil 1,000 mg capsule 1,000 mg PO DAILY Supplement 06/30/23
losartan 50 mg tablet 50 mg PO HS Blood Pressure 06/30/23
vitamin B complex 1 tab PO DAILY Supplement 06/30/23
Evenity 1 dose SC QMONTH 03/26/25
acetaminophen 500 mg tablet 1,000 mg PO Q6H PRN mild pain 03/26/25
(Tylenol Extra Strength)
acetaminophen 650 mg 1,300 mg PO [id number] PRN mild pain 03/26/25
tablet,extended release (Tylenol 8
Hour)
calcium 250 mg tablet 500 mg PO BID Supplement 03/26/25
gabapentin 300 mg capsule 300 mg PO DAILYPRN PRN mild pain 03/26/25
ibuprofen 200 mg tablet 200 mg PO DAILYPRN PRN mild pain 03/26/25
therapeutic multivitamin 1 tab PO DAILY Supplement 03/26/25
Allergies
Allergies
Allergy/AdvReac Type Severity Reaction Status Date / Time
No Known Allergies Allergy Verified 06/30/23 15:28
Physical Exam
-
Exam:
Awake alert and oriented x 3
Cranials 2 through 12 grossly intact
Reflexes normal at all stations
Motor strength testing reveals 5-5 upper lower extremity strength appreciable weakness
Sensory exam is normal
MRI of the lumbar spine shows L4-5 cranially migrated left-sided disc herniation causing severe foraminal compression the exiting L4 nerve root
Problems
-
Problem Status Onset Code
Acute hip pain Acute M25.559
Low back pain Acute M54.50
Assessment / Plan
-
L4-5 HNP with radicular pain
1. Recommend epidural steroid injection while inpatient to hopefully achieve comfort
2. If patient is able to discharge following epidural steroid injection recommended that she follow-up next week in the office for evaluation
3. No acute neurosurgical interventions for this disc herniation as she is neurologically intact if she is unable to discharge secondary to pain then surgery can be entertained as an inpatient
--- NOTE | 2025-04-01 12:02 | CM ---
Chart reviewed. In network SNF location ongoing. [facility]. Patient does not want to go to [facility]. Provided additional facilities, [facility]. CM placed referrals in [facility] for review.
CM was notified that patient's insurance will terminate on 04/06. CM called [facility] to verify this, spoke w/ Gabriel, who confirmed insurance plan will terminate on 04/06, however, this has already been reinstated automatically w/ new plan being effective
on 04/07.
Spoke mirian/ [facility] can accept patient and SNF is in network
Per hospitalist, likely can d/c tomorrow
Will need updated PT/OT evals for insurance auth
Updated patient
Plan: [facility] pending auth approval
--- NOTE | 2025-04-01 15:48 | W.PN.NEURO.1 ---
Today's Communication / Plan
-
May continue pregabalin 100 mg TID or increase to 200 mg 3 times daily to optimize pain control
Continue rehabilitation evaluations and treatment
Neuro Assessment/Plan
Assessment
Ms. 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
presented to [facility] on 03/26/2025 with worsening lumbar and left hip pain limiting her ability to ambulate with urinary incontinence.
LS spine MRI with and wo (03/29/2025): L4-5: Moderate to large left foraminal extruded disc protrusion measuring 1.3 cm transverse by 0.7 cm AP. Secondary left foraminal stenosis compressing the exiting left L4 nerve root. This was also present
previously, though not specifically mentioned. The previous extra-articular synovial cyst at the posterior margin of the right L4-5 facet has resolved. Unremarkable conus terminating at L1-2.
LS spine MRI wo yandel(03/27/2025) L4-L5: Spondylolisthesis with disc uncovering/bulge with resultant mild lateral recess narrowing and mild/moderate bilateral neuroforaminal narrowing. There is no significant central canal stenosis. 7 mm posteriorly
directed synovial facet cyst on the right.
L5-S1: Small disc bulge with a right subarticular disc extrusion and bilateral facet arthropathy with resultant mild right lateral recess narrowing, moderate/severe right-sided neuroforaminal narrowing and mild left-sided neuroforaminal narrowing.
L hip MRI-mild/moderate degenerative changes of the hip with a likely tear of the anterior/superior labrum.
Lumbar puncture results were benign.
Intractable left hip pain of unclear neurological etiology. There is no evidence at this time of a neurological consequence for urinary incontinence and urinary retention other than medication exposures including opioids as the cause
Plan
May continue pregabalin 100 mg TID or increase to 200 mg 3 times daily to optimize pain control
Continue rehabilitation evaluations and treatment
-may need outpatient NCS/EMG of LEs
Will follow as needed
Subjective/Objective
Subjective Data
Date of Service: April 01, 2025
Objective Data
Vital Signs
Temp Pulse Resp BP Pulse Ox
36.6 C 83 16 135/63 100
04/01/25 14:40 04/01/25 14:40 04/01/25 14:40 04/01/25 14:40 04/01/25 14:40
Lab Results
03/30/25 07:03
03/30/25 07:03
PT 13.4 Sec (11.4-14.6) 03/27/25 07:15
INR 0.99 03/27/25 07:15
APTT 32.8 Sec (23.4-35.0) 03/27/25 07:15
Sodium 139 mmol/L (135-145) 03/30/25 07:03
Potassium 4.3 mmol/L (3.5-5.1) 03/30/25 07:03
BUN 21 mg/dl (7-17) H 03/30/25 07:03
Glucose 85 mg/dl (70-99) 03/30/25 07:03
Calcium 8.3 mg/dl (8.4-10.2) L 03/30/25 07:03
Patient Allergies
No Known Allergies Allergy (Verified 06/30/23 15:28)
Data Reviewed
-
Labs: Report Reviewed
Reviewed with: Physician
Old Records: Summarized
[2025-04-02 00:37] LABS: Urine Albumin 2+ (Neg - Trace); Urine Bilirubin Negative (Negative); Urine Character Cloudy (Clear); Urine Color Yellow; Urine Glucose Negative (Negative); Urine Ketone Negative (Negative); Urine Leukocyte 3+ (Negative); Urine Nitrite Negative (Negative); Urine Occult Blood 3+ (Negative); Urine Urobilinogen Negative (Neg - 1+)
[2025-04-02 00:39] LABS: Hematocrit 33.9 % (37.0-47.0); Hemoglobin 11.8 g/dL (12.0-16.0); Mean Corp Hgb Conc. 34.8 g/dL (33.0-37.0); Mean Platelet Volume 10.9 fL (7.4-10.4); Platelet Count 253 10^3/uL (130-400); Red Blood Cell Count 3.81 10^6/uL (4.20-5.40); Red Cell Dist. Width 12.8 % (11.5-14.5); White Blood Cell Count 7.8 10^3/uL (4.8-10.8)
[2025-04-02 00:54] LABS: Urine Amorphous Seen; Urine Bacteria Many (Negative); Urine White Cell >100 /HPF (0-5)
[2025-04-02 00:55] LABS: Urine Squamous Cell SEEN /LPF (Few)
[2025-04-02 01:02] LABS: Blood Urea Nitrogen 18 mg/dl (7-17); Calcium 8.7 mg/dl (8.4-10.2); Carbon Dioxide 22 mmol/L (22-30); Chloride 109 mmol/L (98-107); Estimated Creatinine Clearance 57 ml/min; Glucose 153 mg/dl (70-99); Potassium 5.4 mmol/L (3.5-5.1); Sodium 137 mmol/L (135-145); eGFR > 60.00
--- NOTE | 2025-04-02 02:08 | W.PN.UPDATE ---
Update Note
Progress Note Update
-Patient urinary urgency and dysuria . UA ordered and abnormal result received, patient is symptomatic but with normal WBC and afebrile.
Will give one dose of fosfomycin.
[2025-04-02] MEDS: MONUROL 3 GM PO (02:24)
[2025-04-02 07:25] VITALS: BP 141/67
[2025-04-02] MEDS: LIDOCAINE 4% PATCH 1 PATCH TOPICAL (08:55)
[2025-04-02] MEDS: LYRICA 100 MG PO ×3 (08:57→21:13)
[2025-04-02] MEDS: MIRALAX 17 GRAMS PO ×2 (08:57→19:33)
[2025-04-02] MEDS: SENOKOT-S 1 TABLET PO ×2 (08:58→19:33)
[2025-04-02] MEDS: TYLENOL 1000 MG PO ×3 (08:58→21:14)
[2025-04-02] MEDS: FLEXERIL 5 MG PO ×3 (08:58→21:12)
[2025-04-02] MEDS: FLUSH (NSS) 1 FLUSH IV (08:59)
--- NOTE | 2025-04-02 10:27 | W.PN.HOSP.TC ---
Today's Communication/Plan
-
Resume amlodipine
Discharge planning
Assessment / Plan
Assessment / Plan
Gen-AAOx3, NAD
HEENT-NC, AT, anicteric, clear oral mm
Neck-supple
CV-reg, no M, +S1/S2
Lungs-clear B/L
Abd-soft, NT, ND
Ext-no edema
Musculoskeletal-no cyanosis, clubbing
Skin-warm and dry
Neuro-grossly non-focal
Psych-calm, cooperative
Left lateral lumbar radiculopathy/intractable pain -MRI with and without contrast confirms L4-L5 large left foraminal disc extrusion measuring 1.3 cm and causing compression of the exiting left L4 nerve root.
Pain level improving after lumbar RIVAS injection yesterday by IR.
Appreciate neurosurgery input, recommend outpatient follow-up.
Continue analgesics, PT.
So far no concerning findings on lumbar puncture.
Acute urinary retention -suspect multifactorial etiology including constipation, opiates, limited mobility. Continue bowel regimen. Anticipate improvement with conservative management. Would avoid Hdez catheter.
Left upper lobe lung mass -CT chest completed, 1.1 x 1.3 cm ill-defined focal opacity in the posterior medial left upper lobe noted. Recommend outpatient pulmonary follow-up. Discussed in detail with patient. She denies smoking history.
Hyperkalemia -Potassium 5.4. Give a dose of Lokelma now.
Essential hypertension -she takes amlodipine 5 mg and losartan 50 mg at home, apparently has not received any doses in the hospital. Resume amlodipine today. Hold losartan given hyperkalemia.
Osteoporosis - on monthly Romosozumab injections.
Constipation -bowel regimen ordered. Last bowel movement was 2 days ago, she agrees to get another suppository today.
DVT prophylaxis: Lovenox, hold today's dose given plans for RIVAS by IR today.
DNR/DNI
Dispo -medically stable for discharge to SNF. Case management aware. Awaiting insurance authorization.
Anticipated Discharge: Today
Subjective/Interval History
-
Date of Service: April 02, 2025
Patient seen and examined. Pain intensity is less than yesterday. No complaints.
Objective Data
-
Labs:
Laboratory Results
04/02/25
00:27
WBC 7.8
Hgb 11.8 L
Hct 33.9 L
Plt Count 253
Sodium 137
Potassium 5.4 H D
Chloride 109 H
Carbon Dioxide 22
BUN 18 H
Creatinine 0.6
Glucose 153 H
Calcium 8.7
Vital Signs:
Vital Signs
Temp Pulse Resp BP Pulse Ox
97.3 F 61 16 141/67 97
04/02/25 07:25 04/02/25 07:25 04/02/25 07:25 04/02/25 07:25 04/02/25 07:25
I&O
04/01/25 04/02/25 04/03/25
06:59 06:59 06:59
Intake Total 1620 / 1620 840 / 840
Output Total 230 / 230 500 / 500
Balance 1390 / 1390 340 / 340
Review of Systems
-
History Source: Patient
All other systems: Reviewed and negative
[2025-04-02 10:31] VITALS: BP 124/66; PULSE 66; O2SAT 99
--- NOTE | 2025-04-02 11:09 | CM ---
Addendum entered by Radha Morgan 04/02/25 13:32:
Pending reference # [id number] and referral faxed to [phone]. Awaiting response.
Original Note:
Pending auth from [facility] plan is for patient to go to SNF at [place]. When auth in place please call report to [phone]/fax [phone]. CM will continue to follow for discharge planning needs.
Plan; SNF when auth approved.
[2025-04-02] MEDS: NORVASC 5 MG PO (11:51)
[2025-04-02] MEDS: LOKELMA 10 GRAM PO (11:52)
[2025-04-02 12:19] VITALS: BMI 20.2
[2025-04-02 15:31] VITALS: BP 132/71
[2025-04-02] MEDS: LOVENOX 40 MG SC (18:17)
[2025-04-02] MEDS: ROXICODONE 5 MG PO (18:20)
[2025-04-02 23:46] VITALS: BP 117/62
[2025-04-03 01:21] LABS: C.neoformans Antigen Negative (Negative)
[2025-04-03] MEDS: ROXICODONE 5 MG PO ×2 (02:38→07:07)
[2025-04-03 06:59] VITALS: BP 140/72
[2025-04-03 08:26] LABS: Blood Urea Nitrogen 20 mg/dl (7-17); Calcium 8.9 mg/dl (8.4-10.2); Carbon Dioxide 21 mmol/L (22-30); Chloride 110 mmol/L (98-107); Estimated Creatinine Clearance 57 ml/min; Glucose 108 mg/dl (70-99); Potassium 4.6 mmol/L (3.5-5.1); Sodium 139 mmol/L (135-145); eGFR > 60.00
[2025-04-03] MEDS: LYRICA 100 MG PO (09:27)
[2025-04-03] MEDS: FLEXERIL 5 MG PO (09:27)
[2025-04-03] MEDS: SENOKOT-S 1 TABLET PO (09:27)
[2025-04-03] MEDS: LIDOCAINE 4% PATCH 1 PATCH TOPICAL (09:28)
[2025-04-03] MEDS: NORVASC 5 MG PO (09:29)
[2025-04-03] MEDS: MIRALAX 17 GRAMS PO (09:29)
[2025-04-03] MEDS: TYLENOL 1000 MG PO (09:29)
[2025-04-03] MEDS: FLUSH (NSS) 1 FLUSH IV (09:30)
--- NOTE | 2025-04-03 09:47 | CM ---
Addendum entered by Anu Elmore 04/03/25 12:56:
D/c placed
IMM verbally reviewed, copy provided, copy on chart
Addendum entered by Anu Elmore 04/03/25 11:23:
Per Dr. Marino, [facility] called in, insurance denied SNF request.
CM received call from [facility] informing of denial and info for patient to appeal decision. Recommendation is home w/ home care services
Discussed w/ patient about denial, declined appealing and declined home health services
Updated hospitalist on denial and patient agreement to d/c home when able
Plan: Home, no needs
Addendum entered by Anu Elmore 04/03/25 10:41:
Received call about [facility]. Deadline to complete is today by 2:30 pm
Physician to call [phone], option 5 w/ patient's name, and member ID
Updated CM , Dr. Marino via TT
Original Note:
Called [facility] to check auth status. Spoke w/ Petr who informed CM that [facility] will be offered, no deadline determined at this time. CM will receive call w/ finalized details today
--- NOTE | 2025-04-03 11:36 | W.PN.HOSP.TC ---
Addendum entered and electronically signed by Niraj Coulter DO 04/03/25 12:01:
Urine culture shows E. coli bacteria, greater than 100,000, suggestive of UTI. Apparently she did have symptoms the previous night and was treated with 1 dose of fosfomycin.
Original Note:
Today's Communication/Plan
-
Discharge
Assessment / Plan
Assessment / Plan
Gen-AAOx3, NAD
HEENT-NC, AT, anicteric, clear oral mm
Neck-supple
CV-reg, no M, +S1/S2
Lungs-clear B/L
Abd-soft, NT, ND
Ext-no edema
Musculoskeletal-no cyanosis, clubbing
Skin-warm and dry
Neuro-grossly non-focal
Psych-calm, cooperative
Left lateral lumbar radiculopathy/intractable pain -MRI with and without contrast confirms L4-L5 large left foraminal disc extrusion measuring 1.3 cm and causing compression of the exiting left L4 nerve root.
Pain level improving after lumbar RIVAS injection yesterday by IR.
Appreciate neurosurgery input, recommend outpatient follow-up.
Continue analgesics, PT.
So far no concerning findings on lumbar puncture.
Acute urinary retention -suspect multifactorial etiology including constipation, opiates, limited mobility. Continue bowel regimen. Anticipate improvement with conservative management. Would avoid Hdez catheter.
Left upper lobe lung mass -CT chest completed, 1.1 x 1.3 cm ill-defined focal opacity in the posterior medial left upper lobe noted. Recommend outpatient pulmonary follow-up. Discussed in detail with patient. She denies smoking history.
Hyperkalemia -improved.
Essential hypertension -she takes amlodipine 5 mg and losartan 50 mg at home, apparently has not received any doses in the hospital. Resume amlodipine today. Hold losartan given hyperkalemia.
Osteoporosis - on monthly Romosozumab injections.
Opioid-induced constipation -bowel regimen ordered. Last bowel movement was 04/01. MiraLAX dose increased to twice daily, continue Colace and Senokot. Relistor dose ordered.
High-fiber diet.
DVT prophylaxis: Lovenox
DNR/DNI
Dispo -medically stable for discharge to SNF, but insurance company denied authorization.
Patient to be discharged home. She declined VN.
Recommend outpatient follow-up with PCP and neurosurgery.
31 minutes spent in discharge process.
Anticipated Discharge: Today
Subjective/Interval History
-
Date of Service: April 03, 2025
Patient seen and examined. Complaining of mild left thigh pain.
Objective Data
-
Labs:
Laboratory Results
04/03/25
07:17
Sodium 139
Potassium 4.6
Chloride 110 H
Carbon Dioxide 21 L
BUN 20 H
Creatinine 0.5 L
Glucose 108 H
Calcium 8.9
Vital Signs:
Vital Signs
Temp Pulse Resp BP Pulse Ox
97.6 F 59 16 140/72 96
04/03/25 06:59 04/03/25 06:59 04/03/25 06:59 04/03/25 06:59 04/03/25 06:59
I&O
04/02/25 04/03/25 04/04/25
06:59 06:59 06:59
Intake Total 840 / 840 600 / 600
Output Total 500 / 500 1300 / 1300
Balance 340 / 340 -700 / -700
Review of Systems
-
History Source: Patient
All other systems: Reviewed and negative
--- NOTE | 2025-04-03 11:45 | W.DS.TRANS ---
DC Summary - [employer]
-
Discharge Instructions:
Discharge Diagnosis/Procedures Lumbar radiculopathy, opioid-induced
constipation
Diet Regular
Activity As tolerated
Driving Restrictions Not until seen by your Dr
Bathing Restrictions None
Instructions:
Stand-Alone Forms:
Changes to Home Medications: Yes
Discharge Medications:
DC Medications w/original date entered in [employer]
ascorbic acid (vitamin C) 1,000 mg tablet 1,000 mg PO DAILY Supplement 09/21/11
vitamin E 268 mg (400 unit) capsule 400 unit PO DAILY Supplement 09/21/11
amlodipine 5 mg tablet (Norvasc) 5 mg PO HS Blood Pressure 06/30/23
cholecalciferol (vitamin D3) 25 mcg (1,000 unit) capsule (Vitamin D3) 25 mcg PO DAILY Supplement 06/30/23
flaxseed oil 1,000 mg capsule 1,000 mg PO DAILY Supplement 06/30/23
losartan 50 mg tablet 50 mg PO HS Blood Pressure 06/30/23
vitamin B complex 1 tab PO DAILY Supplement 06/30/23
Evenity 1 dose SC QMONTH 03/26/25
calcium 250 mg tablet 500 mg PO BID Supplement 03/26/25
therapeutic multivitamin 1 tab PO DAILY Supplement 03/26/25
bisacodyl 10 mg rectal suppository 10 mg MD DAILYPRN PRN constipation #10 ea 04/03/25
ibuprofen 800 mg tablet 800 mg PO TID PRN back pain #30 tabs 04/03/25
lidocaine 4 % topical patch 1 patch topical DAILY #10 ea 04/03/25
oxycodone 5 mg tablet 5 mg PO Q4HPRN PRN severe pain #30 tabs 04/03/25
polyethylene glycol 3350 17 gram oral powder packet 17 g PO BID #0 ea 04/03/25
pregabalin 50 mg capsule 100 mg (2 x 50 mg) PO TID #60 caps 04/03/25
sennosides 8.6 mg-docusate sodium 50 mg tablet 1 tab PO BID #60 tabs 04/03/25
Home Medication Changes
Stop gabapentin
Pending Results: No
[2025-04-03 14:58] VITALS: BP 147/74
[2025-04-03 18:47] LABS: Myelin Basic Protein, CSF 5.04 ng/mL (0.00-5.50)
[2025-04-04 01:03] LABS: Albumin Index 9.2 ratio (0.0-9.0); Albumin, CSF 32 mg/dL (0-35); Albumin, Serum 3466 mg/dL (3500-5200); CSF IgG Synthesis Rate 0.7 mg/d (<=8.0); CSF IgG/Albumin Ratio 0.12 ratio (0.09-0.25); CSF Oligoclonal Bands Negative (Negative); CSF Oligoclonal Bands Number Matching Bands (0-1); IgG 803 mg/dL (768-1632)
== END 2025-04-03 16:07 | disposition home or self-care (01) | DRG 552 ==
LOC: 4 EAST ACU 17:09
PROVIDERS: Nurse Practitioner Family; Physician Assistant; Radiology Diagnostic Radiology; Radiology Vascular & Interventional Radiology; ADMITTING PHYSICIAN Internal Medicine; ATTENDING PHYSICIAN Hospitalist; CONSULT PHYSICIAN Neurological Surgery; CONSULT PHYSICIAN Psychiatry & Neurology Neurology; CONSULT PHYSICIAN Student in an Organized Health Care Education/Training Program; EMERGENCY PHYSICIAN Emergency Medicine; FAMILY PHYSICIAN Family Medicine
PROC: 009U3ZX Drainage of Spinal Canal, Percutaneous Approach, Diagnostic (ICD-10-PCS; 2025-03-31)
PROC: B01B1ZZ Fluoroscopy of Spinal Cord using Low Osmolar Contrast (ICD-10-PCS; 2025-03-31)
PROC: 3E0R3BZ Introduction of Anesthetic Agent into Spinal Canal, Percutaneous Approach (ICD-10-PCS; 2025-04-01)
PROC: 3E0R33Z Introduction of Anti-inflammatory into Spinal Canal, Percutaneous Approach (ICD-10-PCS; 2025-04-01)
DX: M51.16 Intervertebral disc disorders with radiculopathy, lumbar region (principal); G83.4 Cauda equina syndrome; N39.0 Urinary tract infection, site not specified; M51.06 Intervertebral disc disorders with myelopathy, lumbar region; G89.29 Other chronic pain; R26.2 Difficulty in walking, not elsewhere classified; I10 Essential (primary) hypertension; M25.552 Pain in left hip; M81.0 Age-related osteoporosis without current pathological fracture; B96.20 Unspecified Escherichia coli [E. coli] as the cause of diseases classified elsewhere; M48.061 Spinal stenosis, lumbar region without neurogenic claudication; M47.27 Other spondylosis with radiculopathy, lumbosacral region; G62.9 Polyneuropathy, unspecified; K59.03 Drug induced constipation; T40.2X5A Adverse effect of other opioids, initial encounter; Y92.239 Unspecified place in hospital as the place of occurrence of the external cause; R33.9 Retention of urine, unspecified; E87.5 Hyperkalemia; K59.00 Constipation, unspecified; R91.8 Other nonspecific abnormal finding of lung field; S73.102A Unspecified sprain of left hip, initial encounter; X58.XXXA Exposure to other specified factors, initial encounter; Y93.9 Activity, unspecified; Y92.9 Unspecified place or not applicable; Z66 Do not resuscitate; Z90.49 Acquired absence of other specified parts of digestive tract
CPT/HCPCS: 62323; 62328; 71260; 72100; 72148; 72157; 72158; 73502; 73721; 80048; 81003; 81015; 82040; 82042; 82784; 82945; 83873; 83916; 84157; 85025; 85027; 85610; 85652; 85730; 86140; 86430; 87077; 87086; 87116; 87186; 87205; 87327; 88108; 89051; 96372; 97166; 97530; 97535; 99284; A9575; Q9967

== ENCOUNTER → 2025-07-04 10:21 | Outpatient (REF) | payer MEDICARE, SELFPAY | LOC: RAD 10:21 | PROVIDERS: ATTENDING PHYSICIAN Internal Medicine Critical Care Medicine; FAMILY PHYSICIAN Family Medicine | DX: R91.1 Solitary pulmonary nodule (principal) | CPT/HCPCS: 71250 ==